=== PATIENT | female | born 1975 | race Caucasian/White ===

== ENCOUNTER 2017-08-20 05:29 | Emergency (ER) | payer OTHER, SELFPAY ==
[2017-08-20 05:31] VITALS: BP 121/90; PULSE 82; RESP 20; TEMP 36.6; O2SAT 98; BMI 38.9
--- NOTE | 2017-08-20 05:48 | EKG12_ITS ---
Test Reason : CP Blood Pressure : / mmHG Vent. Rate : 069 BPM Atrial Rate : 069 BPM P-R Int : 150 ms QRS Dur : 086 ms QT Int : 416 ms P-R-T Axes : -06 -11 008 degrees QTc Int : 445 ms Normal sinus rhythm Inferior infarct , age undetermined Abnormal ECG Confirmed by GERALD REZA, SAYDA ([id number]), health editor RANDOLPH MCKEE ([id number]) on 08/22/2017 10:47:11 AM Referred By: ARIEL Confirmed By:SAYDA DUARTE MD
[2017-08-20 05:54] LABS: Absolute Lymphocyte Count 2.76 X10^3/ul (0.83-4.51); Absolute Neutrophil Count 3.7 X10^3/uL (2.0-7.7); Basophil# 0.03 X10^3/uL; Basophil% 0.4 % (0-1); Eosinophil# 0.25 X10^3/uL; Eosinophils% 3.4 % (0-5); Hematocrit 39.7 % (37-47); Hemoglobin 14.3 g/dl (12.0-15.0); Lymphocyte # 2.76 X10^3/ul (4.0); Mean Corpuscular Hgb 30.6 pg (27.0-32.0); Mean Platelet Vol. 10.2 fl (6.2-12.0); Monocyte# 0.49 X10^3/uL; Monocyte% 6.7 % (0-10); Neutrophil # 3.72 X10^3/uL (2.7-7.7); Neutrophil % 51.2 % (47-70); POSITIVE COUNT NO; POSITIVE DIFFERENTIAL NO; POSITIVE MORPHOLOGY NO; Platelet Count 251 K/mm3 (150-450); RBC Distribution Width CV 12.2 % (11.6-14.6); RBC Distribution Width SD 36.7 fl (35.1-43.9); Red Blood Count 4.67 M/mm3 (4.2-5.4); White Blood Count 7.3 K/mm3 (4.4-11.0)
[2017-08-20] MEDS: 0.9% Normal Saline 1,000 ML 1000 ML IV (05:59)
[2017-08-20] MEDS: MethylPREDNISolone 125 MG/2 ML Vial IV (05:59)
[2017-08-20] MEDS: Ketorolac 15 MG/ML Vial IV (05:59)
[2017-08-20] MEDS: Midazolam 2 MG/2 ML Syringe IV (06:00)
[2017-08-20 06:03] LABS: Anion Gap 9 (5-15); BUN 21 mg/dL (7-18); BUN/Creat Ratio 22.9 RATIO (10-20); Calcium,Total 8.4 mg/dL (8.5-10.1); Chloride 104 mmol/L (98-107); Creatinine, Serum 0.92 mg/dL (0.55-1.02); EST Glomerular Filtration Rate 71 mL/min (>60); Est Glom Filt Rate - Afr Amer 86 mL/min (>60); Estimated Creatinine Clearance 73.81 ml/min; Glucose 100 mg/dL (70-110); Potassium 3.8 mmol/L (3.5-5.1); Sodium Level 138 mmol/L (136-145)
--- NOTE | 2017-08-20 06:53 | ED.VISSUMM ---
- ER Visit Summary Date of Service: 08/20/17 Chief Complaint: [] Esophageal spasm History of Present Illness: The patient is a 41 F [] complaining of esophageal spasm. She reports she has had these symptoms before in the past. She reports slight oral airway swelling and random distribution of hives all over her body. Reports a medical history of fibromyalgia and rheumatoid arthritis. Physical Examination: [] Afebrile, vital signs stable. HEENT shows no significant oral airway edema. Moist mucous membranes. Slight swelling of the lips. Cardiovascular exam is regular rate and rhythm. Lungs are clear to auscultation. Abdomen is soft and nontender. No significant lower extremity pitting edema. Test Results: [] CBC and BMP are within normal limits. Emergency Department Course and Treatment: [] Patient given intravenous fluids, Toradol, Solu-Medrol, Phenergan, Versed. On serial examination she had complete resolution of symptoms. She was requesting discharge. Treatment Plan: [] Follow-up with PCP. Disposition: [] Discharge, stable. Impression: [] Esophageal spasm, unknown etiology This note was generated with [employer] dictation software. It may contain incorrect words, spelling, and punctuation that were not noted in review of the chart prior to signing ED Disposition - Plan for ED Patient: Chief Complaint: Edema Referrals: Sharlene Jurado DO [Primary Care Provider] -
--- NOTE | 2017-08-20 06:56 | ED.DCSUM_ITS ---
- ER Visit Summary Date of Service: 08/20/17 Chief Complaint: [] Esophageal spasm History of Present Illness: The patient is a 41 F [] complaining of esophageal spasm. She reports she has had these symptoms before in the past. She reports slight oral airway swelling and random distribution of hives all over her body. Reports a medical history of fibromyalgia and rheumatoid arthritis. Physical Examination: [] Afebrile, vital signs stable. HEENT shows no significant oral airway edema. Moist mucous membranes. Slight swelling of the lips. Cardiovascular exam is regular rate and rhythm. Lungs are clear to auscultation. Abdomen is soft and nontender. No significant lower extremity pitting edema. Test Results: [] CBC and BMP are within normal limits. Emergency Department Course and Treatment: [] Patient given intravenous fluids, Toradol, Solu-Medrol, Phenergan, Versed. On serial examination she had complete resolution of symptoms. She was requesting discharge. Treatment Plan: [] Follow-up with PCP. Disposition: [] Discharge, stable. Impression: [] Esophageal spasm, unknown etiology This note was generated with [employer] dictation software. It may contain incorrect words, spelling, and punctuation that were not noted in review of the chart prior to signing ED Disposition - Plan for ED Patient: Chief Complaint: Edema Referrals: Sharlene Jurado DO [Primary Care Provider] -
--- NOTE | 2017-08-20 06:56 | ED.DEP ---
ED Disposition - Plan for ED Patient: Disposition: Home or Assisted Living Chief Complaint: Edema Instructions: ED Spasm Esophageal Referrals: Sharlene Jurado DO [Primary Care Provider] -
[2017-08-20 07:00] VITALS: BP 110/77; PULSE 55; RESP 19; O2SAT 97
== END 2017-08-20 07:05 | disposition home or self-care (01) ==
PROVIDERS: Emergency Provider Emergency Medicine; Family Provider Family Medicine; PCP Family Medicine
DX: K22.4 Dyskinesia of esophagus (principal); M79.7 Fibromyalgia; M06.9 Rheumatoid arthritis, unspecified
CPT/HCPCS: 80048; 85025; 93005; 96361; 96374; 96375; 99283; J7030; A4216

== ENCOUNTER → 2017-08-28 08:32 | Outpatient (CLI) | payer OTHER, SELFPAY ==
--- NOTE | 2017-08-28 08:39 | RAD_ITS ---
STUDY: X-RAY - ESOPHAGUS (BARIUM SWALLOW) WITH FLUOROSCOPY REASON FOR EXAM: Female, 41 years old. Dysphagia for solids. TECHNIQUE: 27 view(s) of the esophagus were obtained following swallowing of barium. FLUOROSCOPY TIME (if supplied): (0:31) minutes/seconds COMPARISON: None. FINDINGS: There is no demonstrated esophageal foreign body. There is no demonstrated stricture or mucosal abnormality. Normal gastroesophageal junction, without a demonstrated hiatal hernia. The patient ingested a 12 mm tablet of barium without difficulty. Normal visualized aortic arch and descending thoracic aorta. Normal visualized pulmonary parenchyma. Normal visualized osseous structures of the thorax. RAD/Esophagus Only IMPRESSION: Normal plain film x-ray examination (barium swallow) of the esophagus. Electronically Signed: Spencer Phoenix MD at 10:43 EST Tel [phone], Service support ,
== END ==
PROVIDERS: Family Provider Family Medicine; PCP Family Medicine; Visit Provider Family Medicine
DX: K44.9 Diaphragmatic hernia without obstruction or gangrene (principal); R11.10 Vomiting, unspecified; R13.10 Dysphagia, unspecified; K21.9 Gastro-esophageal reflux disease without esophagitis
CPT/HCPCS: 74220

== ENCOUNTER → 2018-02-02 13:56 | Outpatient (CLI) | payer OTHER, SELFPAY ==
--- NOTE | 2018-02-02 13:59 | RAD_ITS ---
STUDY: X-RAY - LEFT SHOULDER REASON FOR EXAM: Female, 42 years old. Shoulder pain for 4 months. Unable to raise arm above head. TECHNIQUE: 4 view(s) of the shoulder. COMPARISON: None. FINDINGS: Normal glenohumeral articulation. There is degenerative arthrosis of the acromioclavicular joint without inferior osseous spur formation. Normal acromion. There is no acute fracture, dislocation or destructive osseous pathology. Normal humeral head and visualized proximal humerus. The soft tissue structures are unremarkable. Normal visualized pulmonary apex. RAD/Shoulder min 2 Views IMPRESSION: Mild degenerative changes of the acromioclavicular joint. Electronically Signed: Yong Johnson DO at 23:34 EDT Tel [phone], Service support ,
== END ==
LOC: HPRAD 13:58
PROVIDERS: Family Provider Family Medicine; PCP Family Medicine; Visit Provider Family Medicine
DX: M25.512 Pain in left shoulder (principal)
CPT/HCPCS: 73030

== ENCOUNTER → 2018-08-03 12:34 | Outpatient (CLI) | payer OTHER, SELFPAY ==
--- NOTE | 2018-08-03 12:41 | RAD_ITS ---
STUDY: X-RAY - LEFT TIBIA AND FIBULA REASON FOR EXAM: Pain and bruising, fall 5 days ago. TECHNIQUE: 2 view(s) of the tibia and fibula were obtained. COMPARISON: None. FINDINGS: Normal visualized tibia. Normal visualized fibula. There is soft tissue swelling. RAD/Tibia & Fibula 2 Views IMPRESSION: Soft tissue swelling. No demonstrated fracture. Electronically Signed: Santana Sanders MD at 13:45 EST Tel , Service support ,
== END ==
LOC: HPRAD 12:37
PROVIDERS: Family Provider Family Medicine; PCP Family Medicine; Referring Provider Family Medicine; Visit Provider Family Medicine
DX: M79.662 Pain in left lower leg (principal)
CPT/HCPCS: 73590

== ENCOUNTER → 2018-10-17 09:05 | Outpatient (CLI) | payer OTHER, SELFPAY ==
[2018-10-17 13:23] LABS: AST(SGOT) 12 U/L (15-37); Alanine Aminotransfer ALT/SGPT 19 U/L (13-56); Albumin, Serum 3.6 g/dL (3.2-5.0); Alkaline Phosphatase 57 U/L (45-117); Bilirubin, Direct 0.05 mg/dL (0.00-0.30); Globulin 3.1 g/dL (2.2-4.2); Protein, Total 6.7 g/dL (6.4-8.2)
== END ==
PROVIDERS: Family Provider Family Medicine; PCP Family Medicine; Visit Provider Podiatrist
DX: B35.1 Tinea unguium (principal)
CPT/HCPCS: 80076

== ENCOUNTER → 2018-10-19 10:54 | Outpatient (CLI) | payer OTHER, SELFPAY ==
--- NOTE | 2018-10-19 10:57 | VDLE_ITS ---
Reason For Study: LEG PAIN RIGHT LEFT CFV is compressible, spontaneous, phasic, CFV is compressible, spontaneous, phasic, competent and demonstrates normal competent, and demonstrates normal augmentation. augmentation. GSV is normal. FV is compressible, spontaneous, phasic, competent and demonstrates normal augmentation. POP V is compressible, spontaneous, phasic, competent and demonstrates normal augmentation. T/P Trunk is compressible. PTV is compressible. RT PerV is compressible. Procedure Exam performed in department. A preliminary report was called and/or faxed to Dr. Thomas. Interpretation Summary Deep veins of the right lower extremity are patent and compressible segmentally. There is no evidence of right lower extremity deep vein thrombosis. Valvular competence appears intact within the proximal deep venous system on the right . The right greater saphenous vein appears patent and compressible segmentally. Ordering Physician: Luca Thomas Referring Physician: Luca Thomas Performed By: Lucretia Goel RVT
== END ==
LOC: CVS 10:56
PROVIDERS: Family Provider Family Medicine; PCP Family Medicine; Referring Provider Family Medicine; Visit Provider Family Medicine
DX: M79.661 Pain in right lower leg (principal); M79.89 Other specified soft tissue disorders
CPT/HCPCS: 93971

== ENCOUNTER → 2018-10-30 | Outpatient (CLI) | payer OTHER, SELFPAY ==
--- NOTE | 2018-10-30 12:51 | RAD_ITS ---
STUDY: X-RAY - RIGHT KNEE REASON FOR EXAM: Medial pain, rheumatoid arthritis and fibromyalgia, no specific injury. TECHNIQUE: 4 view(s) of the knee. COMPARISON: None. FINDINGS: Normal visualized distal femur. Normal visualized proximal tibia and fibula. Normal proximal tibiofibular articulation. Normal medial femorotibial compartment. Normal lateral femorotibial compartment. Normal patellofemoral articulation. There is a small joint effusion. RAD/Knee 4 or More Views IMPRESSION: Small joint effusion. Otherwise, unremarkable x-ray examination of the right knee. Electronically Signed: Santana Sanders MD at 14:12 EDT Tel , Service support ,
== END | disposition home or self-care (01) ==
LOC: HPRAD 12:48
PROVIDERS: Family Provider Family Medicine; PCP Family Medicine; Referring Provider Family Medicine; Visit Provider Family Medicine
DX: M25.461 Effusion, right knee (principal); M25.561 Pain in right knee
CPT/HCPCS: 73564

== ENCOUNTER → 2019-02-11 | Outpatient (CLI) | payer OTHER, SELFPAY ==
--- NOTE | 2019-02-11 16:26 | RAD_ITS ---
STUDY: X-RAY - RIGHT WRIST REASON FOR EXAM: Female, 43 years old. Trauma TECHNIQUE: 4 view(s) of the wrist were obtained. COMPARISON: None. FINDINGS: The bones of the wrist are intact and located. Mineralization is normal. Soft tissues are intact. RAD/Wrist min 3 Views IMPRESSION: 1. Unremarkable wrist. Electronically Signed: Misti Patel, at 17:09 EDT Tel , Service support ,
== END | disposition home or self-care (01) ==
LOC: MTRAD 16:25
PROVIDERS: Family Provider Family Medicine; PCP Family Medicine; Referring Provider Family Medicine; Visit Provider Family Medicine
DX: M25.531 Pain in right wrist (principal)
CPT/HCPCS: 73110

== ENCOUNTER → 2019-04-15 16:53 | Outpatient (CLI) | payer OTHER, SELFPAY ==
[2019-04-15 18:21] LABS: Free T3 2.3 pg/mL (2.18-3.98); Iron 51 ug/dL (50-170); T4 Free Direct 0.97 ng/dL (0.76-1.46); Thyroid Stim Hormone (TSH) 1.86 uIU/mL (0.358-3.74)
[2019-04-17 16:07] LABS: Thyroid Peroxidase AB 24 IU/mL (0-34)
[2019-04-18 15:29] LABS: Thyroglobulin Antibody 27.9 IU/mL (0.0-0.9)
== END ==
PROVIDERS: Family Provider Family Medicine; PCP Family Medicine; Visit Provider Family Medicine
DX: R53.83 Other fatigue (principal); E61.1 Iron deficiency; E01.0 Iodine-deficiency related diffuse (endemic) goiter
CPT/HCPCS: 36415; 83540; 84439; 84443; 84481; 86376; 86800

== ENCOUNTER → 2019-04-23 15:49 | Outpatient (CLI) | payer OTHER, SELFPAY ==
[2019-04-23 17:14] LABS: Absolute Lymphocyte Count 2.41 X10^3/uL (0.83-4.51); Absolute Neutrophil Count 3.4 X10^3/uL (2.0-7.7); Basophil# 0.05 X10^3/uL; Basophil% 0.8 % (0-1); Eosinophil# 0.23 X10^3/uL; Eosinophils% 3.5 % (0-5); Hematocrit 41.8 % (37-47); Hemoglobin 13.9 g/dL (12.0-15.0); Lymphocyte # 2.41 X10^3/ul (4.0); Lymphocyte % 36.9 % (19-41); Mean Corp Hgb Conc 33.3 g/dL (32-36); Mean Corpuscular Volume 90.3 fL (81-99); Mean Platelet Vol. 10.7 fl (6.2-12.0); Monocyte# 0.43 X10^3/uL; Monocyte% 6.6 % (0-10); NRBC Flagged by Analyzer 0 % (0-5); Neutrophil # 3.41 X10^3/uL (2.7-7.7); Platelet Count 226 K/mm3 (150-450); RBC Distribution Width CV 12.1 % (11.6-14.6); RBC Distribution Width SD 39.6 fl (35.1-43.9); Red Blood Count 4.63 M/mm3 (4.2-5.4); White Blood Count 6.5 K/mm3 (4.4-11.0)
[2019-04-23 17:24] LABS: ALB/GLOB Ratio 1.1 RATIO (0.9-2.4); AST(SGOT) 10 U/L (15-37); Alanine Aminotransfer ALT/SGPT 21 U/L (13-56); Albumin, Serum 3.7 g/dL (3.2-5.0); Alkaline Phosphatase 55 U/L (45-117); Anion Gap 5 (5-15); BUN 13 mg/dL (7-18); BUN/Creat Ratio 11.3 RATIO (10-20); Calcium,Total 8.2 mg/dL (8.5-10.1); Chloride 107 mmol/L (98-107); Cholesterol 214 mg/dL (200); Creatinine, Serum 1.15 mg/dL (0.55-1.02); EST Glomerular Filtration Rate 54 mL/min (>60); Est Glom Filt Rate - Afr Amer 66 mL/min (>60); Globulin 3.4 g/dL (2.2-4.2); Glucose 86 mg/dL (74-106); High Density Lipoprotein 42 mg/dL; Potassium 3.8 mmol/L (3.5-5.1); Protein, Total 7.1 g/dL (6.4-8.2); Sodium Level 140 mmol/L (136-145); Triglycerides 159 mg/dL; Very Low Density Lipoprotein 32 mg/dL (5-40)
[2019-04-23 17:30] LABS: Vitamin B12 311 pg/mL (211-911); Vitamin D,25 Hydroxy 23.7 ng/mL (29.95-100.01)
[2019-04-23 17:43] LABS: PTHIN 70.4 pg/mL (18.4-80.1)
== END ==
PROVIDERS: Family Provider Family Medicine; PCP Family Medicine; Visit Provider Family Medicine
DX: Z00.00 Encounter for general adult medical examination without abnormal findings (principal); E03.9 Hypothyroidism, unspecified; R53.83 Other fatigue
CPT/HCPCS: 36415; 80053; 80061; 82306; 82607; 83970; 85025

== ENCOUNTER → 2019-06-10 14:11 | Outpatient (CLI) | payer OTHER, SELFPAY | PROVIDERS: Family Provider Family Medicine; PCP Family Medicine; Visit Provider Family Medicine | DX: R31.9 Hematuria, unspecified (principal) | CPT/HCPCS: 87086; 87088 ==

== ENCOUNTER → 2019-06-24 15:25 | Outpatient (CLI) | payer OTHER, SELFPAY ==
[2019-06-24 18:41] LABS: ALB/GLOB Ratio 1.1 RATIO (0.9-2.4); AST(SGOT) 19 U/L (15-37); Alanine Aminotransfer ALT/SGPT 38 U/L (13-56); Albumin, Serum 3.8 g/dL (3.2-5.0); Alkaline Phosphatase 66 U/L (45-117); Anion Gap 5 (5-15); BUN 15 mg/dL (7-18); BUN/Creat Ratio 15.6 RATIO (10-20); Calcium,Total 8.1 mg/dL (8.5-10.1); Chloride 104 mmol/L (98-107); Creatinine, Serum 0.96 mg/dL (0.55-1.02); EST Glomerular Filtration Rate 67 mL/min (>60); Est Glom Filt Rate - Afr Amer 81 mL/min (>60); Free T3 2.5 pg/mL (2.18-3.98); Globulin 3.5 g/dL (2.2-4.2); Glucose 95 mg/dL (74-106); Potassium 4.2 mmol/L (3.5-5.1); Protein, Total 7.3 g/dL (6.4-8.2); Sodium Level 137 mmol/L (136-145); T4 Free Direct 1.01 ng/dL (0.76-1.46); Thyroid Stim Hormone (TSH) 1.93 uIU/mL (0.358-3.74)
[2019-06-25 10:05] LABS: Vitamin D,25 Hydroxy 30.4 ng/mL (29.95-100.01)
== END ==
LOC: BFHLAB 15:26
PROVIDERS: Family Provider Family Medicine; PCP Family Medicine; Visit Provider Family Medicine
DX: E03.9 Hypothyroidism, unspecified (principal); E55.9 Vitamin D deficiency, unspecified; Z51.81 Encounter for therapeutic drug level monitoring
CPT/HCPCS: 36415; 80053; 82306; 84439; 84443; 84481

== ENCOUNTER → 2019-10-08 15:00 | Outpatient (CLI) | payer BC, SELFPAY ==
[2019-10-08 17:18] LABS: Absolute Lymphocyte Count 2.68 X10^3/uL (0.83-4.51); Absolute Neutrophil Count 4.5 X10^3/uL (2.0-7.7); Basophil# 0.05 X10^3/uL; Basophil% 0.6 % (0-1); Eosinophil# 0.14 X10^3/uL; Eosinophils% 1.8 % (0-5); Hematocrit 43.4 % (37-47); Hemoglobin 14.9 g/dL (12.0-15.0); Lymphocyte # 2.68 X10^3/ul (4.0); Lymphocyte % 33.8 % (19-41); Mean Corp Hgb Conc 34.3 g/dL (32-36); Mean Corpuscular Hgb 30.3 pg (27.0-32.0); Mean Corpuscular Volume 88.2 fL (81-99); Mean Platelet Vol. 10.6 fl (6.2-12.0); Monocyte# 0.52 X10^3/uL; Monocyte% 6.6 % (0-10); NRBC Flagged by Analyzer 0 % (0-5); Neutrophil # 4.52 X10^3/uL (2.7-7.7); Neutrophil % 56.9 % (47-70); Platelet Count 252 K/mm3 (150-450); RBC Distribution Width CV 12.3 % (11.6-14.6); RBC Distribution Width SD 39.7 fl (35.1-43.9); Red Blood Count 4.92 M/mm3 (4.2-5.4); White Blood Count 7.9 K/mm3 (4.4-11.0)
[2019-10-08 17:40] LABS: Free T3 2.7 pg/mL (2.18-3.98); T4 Free Direct 1.02 ng/dL (0.76-1.46); Thyroid Stim Hormone (TSH) 2.12 uIU/mL (0.358-3.74)
== END ==
PROVIDERS: PCP Family Medicine; Visit Provider Family Medicine
DX: R53.83 Other fatigue (principal); E03.9 Hypothyroidism, unspecified
CPT/HCPCS: 36415; 84439; 84443; 84481; 85025

== ENCOUNTER → 2020-06-03 15:50 | Outpatient (CLI) | payer BC, SELFPAY ==
[2020-06-03 17:03] LABS: ALB/GLOB Ratio 1.1 RATIO (0.9-2.4); AST(SGOT) 14 U/L (15-37); Alanine Aminotransfer ALT/SGPT 25 U/L (13-56); Alkaline Phosphatase 57 U/L (45-117); Anion Gap 7 (5-15); BUN 15 mg/dL (7-18); BUN/Creat Ratio 14.3 RATIO (10-20); Calcium,Total 8.8 mg/dL (8.5-10.1); Chloride 104 mmol/L (98-107); Creatinine, Serum 1.05 mg/dL (0.55-1.02); EST Glomerular Filtration Rate 60 mL/min (>60); Est Glom Filt Rate - Afr Amer 72 mL/min (>60); Globulin 3.6 g/dL (2.2-4.2); Glucose 91 mg/dL (74-106); Potassium 3.7 mmol/L (3.5-5.1); Protein, Total 7.6 g/dL (6.4-8.2); Sodium Level 139 mmol/L (136-145)
== END ==
PROVIDERS: PCP Family Medicine; Visit Provider Family Medicine
DX: N28.9 Disorder of kidney and ureter, unspecified (principal)
CPT/HCPCS: 36415; 80053

== ENCOUNTER → 2020-06-17 | Outpatient (CLI) | payer BC, SELFPAY | END | disposition home or self-care (01) | LOC: LABSPEC 10:17 | PROVIDERS: PCP Family Medicine; Visit Provider Family Medicine | DX: Z20.828 Contact with and (suspected) exposure to other viral communicable diseases (principal) | CPT/HCPCS: 87635; U0002 ==

== ENCOUNTER → 2020-08-14 08:21 | Outpatient (CLI) | payer BC, SELFPAY ==
[2020-08-14 12:22] LABS: Absolute Lymphocyte Count 1.55 X10^3/uL (0.83-4.51); Absolute Neutrophil Count 3.1 X10^3/uL (2.0-7.7); Basophil# 0.02 X10^3/uL; Basophil% 0.4 % (0-1); Eosinophil# 0.13 X10^3/uL; Eosinophils% 2.5 % (0-5); Hematocrit 43.7 % (37-47); Hemoglobin 14.7 g/dL (12.0-15.0); Lymphocyte # 1.55 X10^3/ul (4.0); Lymphocyte % 29.8 % (19-41); Mean Corp Hgb Conc 33.6 g/dL (32-36); Mean Corpuscular Hgb 29.7 pg (27.0-32.0); Mean Corpuscular Volume 88.3 fL (81-99); Mean Platelet Vol. 10.7 fl (6.2-12.0); Monocyte# 0.37 X10^3/uL; Monocyte% 7.1 % (0-10); NRBC Flagged by Analyzer 0 % (0-5); Neutrophil # 3.12 X10^3/uL (2.7-7.7); Platelet Count 248 K/mm3 (150-450); RBC Distribution Width CV 12.3 % (11.6-14.6); RBC Distribution Width SD 40.1 fl (35.1-43.9); Red Blood Count 4.95 M/mm3 (4.2-5.4); White Blood Count 5.2 K/mm3 (4.4-11.0)
[2020-08-14 12:51] LABS: Vitamin D,25 Hydroxy 20.2 ng/mL
[2020-08-14 13:44] LABS: ALB/GLOB Ratio 1.1 RATIO (0.9-2.4); AST(SGOT) 15 U/L (15-37); Alanine Aminotransfer ALT/SGPT 25 U/L (13-56); Albumin, Serum 3.7 g/dL (3.2-5.0); Alkaline Phosphatase 60 U/L (45-117); Anion Gap 8 (5-15); BUN 18 mg/dL (7-18); BUN/Creat Ratio 17.6 RATIO (10-20); Calcium,Total 8.1 mg/dL (8.5-10.1); Chloride 106 mmol/L (98-107); Cholesterol 238 mg/dL (200); Creatinine, Serum 1.02 mg/dL (0.55-1.02); EST Glomerular Filtration Rate 62 mL/min (>60); Est Glom Filt Rate - Afr Amer 75 mL/min (>60); Free T3 2.7 pg/mL (2.18-3.98); Globulin 3.3 g/dL (2.2-4.2); Glucose 82 mg/dL (74-106); High Density Lipoprotein 48 mg/dL; Potassium 3.8 mmol/L (3.5-5.1); Sodium Level 139 mmol/L (136-145); T4 Free Direct 1.11 ng/dL (0.76-1.46); Thyroid Stim Hormone (TSH) 2.08 uIU/mL (0.358-3.74); Triglycerides 89 mg/dL; Very Low Density Lipoprotein 18 mg/dL (5-40)
[2020-08-17 16:08] LABS: Thyroid Peroxidase AB < 9 IU/mL (0-34)
[2020-08-17 18:53] LABS: Thyroglobulin Antibody 60.1 IU/mL (0.0-0.9)
== END ==
PROVIDERS: PCP Family Medicine; Referring Provider Family Medicine; Visit Provider Family Medicine
DX: Z00.01 Encounter for general adult medical examination with abnormal findings (principal); E78.5 Hyperlipidemia, unspecified; E03.9 Hypothyroidism, unspecified; N18.31 Chronic kidney disease, stage 3a; E55.9 Vitamin D deficiency, unspecified; R53.83 Other fatigue; Z51.81 Encounter for therapeutic drug level monitoring
CPT/HCPCS: 36415; 80053; 80061; 82306; 84439; 84443; 84481; 85025; 86376; 86800

== ENCOUNTER → 2023-09-27 | Outpatient (CLI) | payer OTHER, SELFPAY ==
[2023-09-27 16:57] LABS: Absolute Lymphocyte Count 2.21 X10^3/uL (0.83-4.51); Absolute Neutrophil Count 4.1 X10^3/uL (2.0-7.7); Basophil# 0.05 X10^3/uL; Basophil% 0.7 % (0-1); Eosinophil# 0.11 X10^3/uL; Eosinophils% 1.6 % (0-5); Hematocrit 42.2 % (37-47); Hemoglobin 14.6 g/dL (12.0-15.0); Lymphocyte # 2.21 X10^3/ul (0.83-4.51); Mean Corp Hgb Conc 34.6 g/dL (32-36); Mean Corpuscular Hgb 30.4 pg (27.0-32.0); Mean Corpuscular Volume 87.7 fL (81-99); Monocyte# 0.48 X10^3/uL; Monocyte% 6.9 % (0-10); NRBC Flagged by Analyzer 0 % (0-5); Neutrophil # 4.05 X10^3/uL (2.7-7.7); Neutrophil % 58.7 % (47-70); Platelet Count 240 K/mm3 (150-450); RBC Distribution Width CV 12.3 % (11.6-14.6); RBC Distribution Width SD 39.6 fl (35.1-43.9); Red Blood Count 4.81 M/mm3 (4.2-5.4); White Blood Count 6.9 K/mm3 (4.4-11.0)
[2023-09-27 17:27] LABS: Vitamin B12 356 pg/mL (211-911); Vitamin D,25 Hydroxy 26.9 ng/mL
[2023-09-27 17:28] LABS: Hemoglobin A1c 5.1 % (3.8-5.6)
[2023-09-27 17:35] LABS: ALB/GLOB Ratio 1.1 RATIO (0.9-2.4); AST(SGOT) 12 U/L (15-37); Alanine Aminotransfer ALT/SGPT 21 U/L (13-56); Alkaline Phosphatase 55 U/L (45-117); Anion Gap 3 (5-15); BUN 15 mg/dL (7-18); BUN/Creat Ratio 15.8 RATIO (10-20); Calcium,Total 8.7 mg/dL (8.5-10.1); Chloride 105 mmol/L (98-107); Cholesterol 183 mg/dL (200); Creatinine, Serum 0.95 mg/dL (0.55-1.02); EST Glomerular Filtration Rate 66 mL/min (>60); Est Glom Filt Rate - Afr Amer 80 mL/min (>60); Globulin 3.5 g/dL (2.2-4.2); Glucose 101 mg/dL (74-106); High Density Lipoprotein 56 mg/dL; Protein, Total 7.5 g/dL (6.4-8.2); Sodium Level 137 mmol/L (136-145); Thyroid Stim Hormone (TSH) 1.38 uIU/mL (0.358-3.74); Triglycerides 131 mg/dL; Very Low Density Lipoprotein 26 mg/dL (5-40)
--- OUTSIDE RECORDS SUMMARY | 2023-09-27 20:52 | XMS RPT_ITS | CCD ---
Author Name Unknown Address [address] [place] [address] Organization [facility] Care Team Providers Care Hair Boiler Name Role Phone Clark Del Angeln Shawn Unavailable Unavailable Unavailable Clark Del Angeln Unavailable Nik Frey Unavailable Unavailable Newbill, Mr. Monica Chowdhury Primary Care Unavail able Newbill, Mr. Rodasjulian Chowdhury Attending Unavail able Newbill, Mr. Rodasn Trenton Referring Unavail able Newbill, Mr. Monica Chowdhury Primary Care Unavail able Newbill, Mr. Rodasn Trenton Attending Unavail able Newbill, Mr. Rodasn Trenton Referring Unavail able Newbill, Mr. Rodasjulian Chowdhury Referring Unavail able Newbill, Mr. Monica Chowdhury Primary Care Unavail able Newbill, Mr. Monica Chowdhury Attending Unavail able Newbill, Mr. Rodasn Trenton Referring Unavail able Newbill, Mr. Rodasn Trenton Primary Care Unavail able Newbill, Mr. Rodasjulian Chowdhury Attending Unavail able Newbill, Mr. Rodasjulian Chowdhury Primary Care Unavail able Newbill, Mr. Rodasn Trenton Attending Unavail able Newbill, Mr. Rodasjulian Guillenel Referring Unavail able Newbill, Mr. Rodasn Trenton Primary Care Unavail able Newbill, Mr. Rodasjulian Chowdhury Attending Unavail able Newbill, Mr. Rodasjulian Chowdhury Referring Unavail able Newbill, Mr. Rodasn Trenton Primary Care Unavail able Newbill, Mr. Rodasjulian Chowdhury Attending Unavail able Newbill, Mr. Rodasjulian Chowdhury Referring Unavail able Newbill, Mr. Rodasjulian Chowdhury Primary Care Unavail able Newbill, Mr. Monica Chowdhury Attending Unavail able Newbill, Mr. Monica Chowdhury Referring Unavail able Newbill, Mr. Monica Chowdhury Primary Care Unavail able Newbill, Mr. Monica Chowdhury Attending Unavail able Newbill, Mr. Monica Chowdhury Referring Unavail able Newbill Monica HUANG Primary Care Provider Jan JOURNEYMAN APPRENTICE E[employer]-INDUSTRIAL WELDER, Alicia A Unavailable MONICA DEL ANGEL Primary Care Unavailable ADAN MALDONADO Attending Unavailable NEWBILL, MONICA M Primary Care Unavailable NEWBILL, MONICA Escobar Attending Unavailable NEWBILL, MONICA M Primary Care Unavailable NEWBILL, MONICA M Attending Unavailable NEWBILL, MONICA M Primary Care Unavailable NEWBILL, MONICA M Attending Unavailable NEWBILL, MONICA M Primary Care Unavailable NEWBILL, MONICA M Attending Unavailable NEWBILL, MONICA M Referring Unavailable NEWBILL, MONICA M Primary Care Unavailable NEWBILL, MONICA M Attending Unavailable NEWBILL, MONICA M Primary Care Unavailable Allergies Allergy Classification Reported Allergen(s) Allergy Type Date of Onset Reaction(s) Facility (14 sources) diphenhydrAMINE; Translations: [Benadryl] Drug Allergy Hives/Urticari a, Angioedema [facility] Work Phone: (1 source) HYDROmorphone Drug Allergy Angioedema [facility] (7 sources) diphenhydrAMINE; Translations: [DIPHENHYDRAMINE HCL] Drug Allergy 09-02-19 23 [facility] (7 sources) HYDROmorphone; Translations: [HYDROMORPHONE] Drug Allergy 11-24-19 23 [facility] (7 sources) Salicylic Acid; Translations: [SALICYLATES] Drug Allergy 04-12-20 05 [facility] Work Phone: (7 sources) Iodinated Contrast Media; Translations: [IODINATED CONTRAST MEDIA] Drug Intolerance 10-16-19 10 [facility] Work Phone: Medications Current Medications Medication Drug Class(es) Dates Sig (Normalized) Sig (Original) amoxicillin 875 mg oral tablet (1 source) Penicillin-class Antibacterial Start: 04-20-2023 End: 04-25-2023 take 1 tablet by mouth twice daily amoxicillin (Amoxil) 875 mg tablet Indications: Submandibular lymphadenopathy Take 1 tablet (875 mg) by mouth 2 times a day for 5 days. 10 tablet 0 04/20/2023 04/25/2023 Active atomoxetine 40 mg oral capsule (18 sources) Norepinephrine Reuptake Inhibitor Start: 07-20-2021 take 1 capsule by mouth twice daily atomoxetine (Strattera) 40 mg capsule Take 1 capsule (40 mg) by mouth 2 times a day. 0 07/20/2021 Active Completed/Discontinued Medications Medication Drug Class(es) Dates Sig (Normalized) Sig (Original) azithromycin 250 mg oral tablet (7 sources) Macrolide Antimicrobial Start: 03-07-2023 End: 04-20-2023 azithromycin (Zithromax) 250 mg tablet Indications: COVID-19 Take 1 tablet (250 mg) by mouth once daily. 2 tabs po day 1 1 tab po every day days 2-5 6 tablet 0 03/28/2023 04/20/2023 Discontinued (Therapy completed) Problems Active Problems Problem Classification Problem Date Documented Date Episodic/Chronic Anxiety disorders (20 sources) Mixed anxiety and depressive disorder; Translations: [Anxiety state, unspecified] Onset: 09-02-2022 Resolved: 09-02-2022 09-02-2022 Chronic Chronic obstructive pulmonary disease and bronchiectasis (9 sources) Bronchitis; Translations: [Bronchitis, not specified as acute or chronic] Episodic Disorders usually diagnosed in infancy, childhood, or adolescence (18 sources) Attention deficit hyperactivity disorder, predominantly inattentive type; Translations: [Attention deficit disorder without mention of hyperactivity] Onset: 09-02-2022 09-02-2022 Chronic Esophageal disorders (18 sources) Gastroesophageal reflux disease; Translations: [Esophageal reflux] Onset: 09-02-2022 09-02-2022 Chronic Lymphadenitis (3 sources) Submandibular lymphadenopathy; Translations: [Localized enlarged lymph nodes] Onset: 04-20-2023 04-20-2023 Episodic Other aftercare (1 source) Drug therapy finding; Translations: [Other senior living (current) drug therapy] 11-23-2022 Episodic Other connective tissue disease (12 sources) Spasm; Translations: [Spasm of muscle] Episodic Other connective tissue disease (2 sources) Bursitis of unspecified shoulder; Translations: [Bursitis of unspecified shoulder] Onset: 02-01-2023 Episodic Other nutritional; endocrine; and metabolic disorders (2 sources) Obese class I; Translations: [Obesity, unspecified] 11-23-2022 Chronic Other nutritional; endocrine; and metabolic disorders (2 sources) Obesity, unspecified; Translations: [Obesity, unspecified] Onset: 11-23-2022 Chronic Other upper respiratory infections (15 sources) Laryngitis; Translations: [Acute laryngitis without mention of obstruction] Onset: 03-07-2023 03-07-2023 Episodic Spondylosis; intervertebral disc disorders; other back problems (6 sources) Torticollis; Translations: [Torticollis] Onset: 02-01-2023 02-04-2023 Episodic Unclassified (2 sources) CHEST PAINS 12-16-2021 Past or Other Problems Problem Classification Problem Date Documented Date Episodic/Chronic Administrative/social admission (8 sources) Patient encounter status; Translations: [Counseling on substance use and abuse] Resolved: 05-18-2022 Episodic Allergic reactions (4 sources) Contact dermatitis due to poison roseann; Translations: [Contact dermatitis and other eczema due to plants [except food]] Resolved: 05-18-2022 Episodic Mycoses (20 sources) Candidal intertrigo; Translations: [Candidiasis of skin and nails] Onset: 09-02-2022 Resolved: 09-02-2022 09-02-2022 Episodic Other aftercare (2 sources) Other watermaster (current) drug therapy; Translations: [Other watermaster (current) drug therapy] Onset: 11-23-2022 Episodic Other connective tissue disease (15 sources) Fibromyalgia; Translations: [Myalgia and myositis, unspecified] Onset: 09-02-2022 10-26-2022 Episodic Other connective tissue disease (1 source) History of clinical finding in subject; Translations: [Personal history of other musculoskeletal disorders] Resolved: 04-18-2022 Episodic Other connective tissue disease (3 sources) Fibromyositis; Translations: [Fibromyalgia] Onset: 09-02-2022 10-26-2022 Episodic Other inflammatory condition of skin (18 sources) Psoriasis; Translations: [Other psoriasis] Onset: 09-02-2022 Resolved: 09-02-2022 09-02-2022 Chronic Other lower respiratory disease (14 sources) Nodule of lung; Translations: [Solitary pulmonary nodule] Onset: 09-02-2022 Resolved: 09-02-2022 12-16-2021 Episodic Other lower respiratory disease (1 source) H/O: respiratory disease; Translations: [Personal history of other diseases of respiratory system] Resolved: 04-18-2022 Episodic Other lower respiratory disease (1 source) H/O: bronchitis; Translations: [Personal history of other diseases of respiratory system] Resolved: 04-18-2022 Episodic Pleurisy; pneumothorax; pulmonary collapse (10 sources) Pleurisy; Translations: [Pleurisy without mention of effusion or current tuberculosis] Resolved: 05-18-2022 12-16-2021 Episodic Residual codes; unclassified (18 sources) Insomnia; Translations: [Insomnia, unspecified] Onset: 09-02-2022 09-02-2022 Episodic Unclassified (4 sources) Onset: 12-28-2022 Resolved: 03-07-2023 12-28-2022 Results Test Name Value Interpretation Reference Range Facil ity Vital Signs Date Time Vital Sign Value Performing Clinician Facility 04-20-2023 16:39-0400 Body height 167.6 cm Monica Newbill PA-C Work Phone: [facility] 04-20-2023 16:39-0400 Body mass index (BMI) [Ratio] 35.36 kg/m2 Monica Newbill PA-C Work Phone: [facility] 04-20-2023 16:39-0400 Body temperature 98.91 [degF] Monica Newbill PA-C Work Phone: [facility] 04-20-2023 16:39-0400 Body weight 99.38 kg Monica Newbill PA-C Work Phone: [facility] 04-20-2023 16:39-0400 Diastolic blood pressure 86 mm[Hg] Monica Newbill PA-C Work Phone: [facility] 04-20-2023 16:39-0400 Heart rate 68 /min Monica Newbill PA-C Work Phone: [facility] 04-20-2023 16:39-0400 Systolic blood pressure 132 mm[Hg] Monica Newbill PA-C Work Phone: [facility] 03-07-2023 [id number]:11040 Body height 167.6 cm Monica Newbill PA-C Work Phone: [facility] 03-07-2023 10:11-0400 Body mass index (BMI) [Ratio] 34.78 kg/m2 Monica Newbill PA-C Work Phone: 6(400)[phone] [address] 03-07-2023 10:11-040 Body temperature 97.5 [degF] Monica Newbill PA-C Work Phone: 2(104)[phone] [address] 03-07-2023 10:11-0400 Body weight 97.75 kg Monica Newbill PA-C Work Phone: 5(066)[phone] [address] 03-07-2023 10:11-0400 Diastolic blood pressure 84 mm[Hg] Monica Newbill PA-C Work Phone: 1(037)965-396514 [place] [address] 03-07-2023 10:11-0400 Heart rate 79 /min Monica Newbill PA-C Work Phone: 3(060)559-417214 [place] [address] 03-07-2023 10:11-0400 SaO2% (BldA) [Mass fraction] 99 % Monica Newbill PA-C Work Phone: 8(378)[phone] [place] [address] 03-07-2023 10:11-0400 Systolic blood pressure 136 mm[Hg] Monica Newbill PA-C Work Phone: [facility] 02-04-2023 13:28-040 Body height 167.6 cm Monica Newbill PA-C Work Phone: 0(934)[phone] [address] 02-04-2023 13:28-0400 Body mass index (BMI) [Ratio] 35.38 kg/m2 Monica Newbill PA-C Work Phone: [facility] 02-04-2023 13:28-0400 Body temperature 97.7 [degF] Monica Newbill PA-C Work Phone: [facility] 02-04-2023 13:28-0400 Body weight 99.43 kg Monica Newbill PA-C Work Phone: [facility] 02-04-2023 13:28-0400 Diastolic blood pressure 87 mm[Hg] Monica Newbill PA-C Work Phone: [facility] 02-04-2023 13:28-0400 Heart rate 75 /min Monica Newbill PA-C Work Phone: [facility] 02-04-2023 13:28-0400 Systolic blood pressure 133 mm[Hg] Monica Newbill PA-C Work Phone: [facility] 12-28-2022 08:38-0400 Body height 167.6 cm Monica Newbill PA-C Work Phone: [facility] 12-28-2022 08:38-0400 Body mass index (BMI) [Ratio] 34.02 kg/m2 Monica Newbill PA-C Work Phone: [facility] 12-28-2022 08:38-0400 Body weight 95.62 kg Monica Newbill PA-C Work Phone: [facility] 12-28-2022 08:38-0400 Diastolic blood pressure 76 mm[Hg] Monica Newbill PA-C Work Phone: [facility] 12-28-2022 08:38-0400 Heart rate 82 /min Monica Newbill PA-C Work Phone: [facility] 12-28-2022 08:38-0400 Systolic blood pressure 124 mm[Hg] Monica Newbill PA-C Work Phone: [facility] 11-23-2022 08:31-0400 Body height 167.6 cm Monica Newbill PA-C Work Phone: [facility] 11-23-2022 08:31-0400 Body mass index (BMI) [Ratio] 33.57 kg/m2 Monica Newbill PA-C Work Phone: [facility] 11-23-2022 08:31-0400 Body weight 94.35 kg Monica Newbill PA-C Work Phone: [facility] 11-23-2022 08:31-0400 Diastolic blood pressure 70 mm[Hg] Monica Newbill PA-C Work Phone: [facility] 11-23-2022 08:31-0400 Heart rate 73 /min Monica Newbill PA-C Work Phone: [facility] 11-23-2022 08:31-0400 SaO2% (BldA) [Mass fraction] 99 % Monica Newbill PA-C Work Phone: [facility] 11-23-2022 08:31-0400 Systolic blood pressure 112 mm[Hg] Monica Newbill PA-C Work Phone: [facility] 05-18-2022 09:31-0400 Body height 167.64 cm Monica Escobar Newbill Work Phone: [facility] Work Phone: 05-18-2022 09:31-0400 Body mass index (BMI) [Ratio] 30.86 kg/m2 Monica Shawn Newbill Work Phone: [facility] Work Phone: 05-18-2022 09:31-0400 Body surface area Derived from formula 1.96 m2 Monica M Newbill Work Phone: [facility] Work Phone: 05-18-2022 09:31-0400 Body weight 86.73 kg Monica M Newbill Work Phone: [facility] Work Phone: 05-18-2022 09:31-0400 Diastolic blood pressure 74 mm[Hg] Monica Del Angel Work Phone: [facility] Work Phone: 05-18-2022 09:31-0400 Heart rate 102 /min Monica Del Angel Work Phone: [facility] Work Phone: 05-18-2022 09:31-0400 Systolic blood pressure 117 mm[Hg] Monica Del Angel Work Phone: [facility] Work Phone: 04-18-2022 10:19-0400 Body height 167.64 cm Monica Del Angel Work Phone: [facility] Work Phone: 04-18-2022 10:19-0400 Body mass index (BMI) [Ratio] 31.78 kg/m2 Monica Del Angel Work Phone: [facility] Work Phone: 04-18-2022 10:19-0400 Body surface area Derived from formula 1.99 m2 Monica Del Angel Work Phone: [facility] Work Phone: 04-18-2022 10:19-0400 Body temperature 98.2 [degF] Monica Del Angel Work Phone: [facility] Work Phone: 04-18-2022 10:19-0400 Body weight 89.31 kg Monica Del Angel Work Phone: [facility] Work Phone: 04-18-2022 10:19-0400 Diastolic blood pressure 84 mm[Hg] Monica Del Angel Work Phone: [facility] Work Phone: 04-18-2022 10:19-0400 Heart rate 100 /min Monica Del Angel Work Phone: [facility] Work Phone: 04-18-2022 10:19-0400 SaO2% (BldA) [Mass fraction] 99 % Monica Del Angel Work Phone: [facility] Work Phone: 04-18-2022 10:19-0400 Systolic blood pressure 137 mm[Hg] Monica Del Angel Work Phone: [facility] Work Phone: 04-04-2022 12:14-0400 Body height 167.64 cm Monica Del Angel Work Phone: [facility] Work Phone: 04-04-2022 12:14-0400 Body mass index (BMI) [Ratio] 31.1 kg/m2 Monica Del Angel Work Phone: [facility] Work Phone: 04-04-2022 12:14-0400 Body surface area Derived from formula 1.97 m2 Monica Del Angel Work Phone: [facility] Work Phone: 04-04-2022 12:14-0400 Body temperature 98 [degF] Monica Del Angel Work Phone: [facility] Work Phone: 04-04-2022 12:14-0400 Body weight 87.41 kg Monica Del Angel Work Phone: [facility] Work Phone: 04-04-2022 12:14-0400 Diastolic blood pressure 95 mm[Hg] Monica Shawn Newstaceyl Work Phone: [facility] Work Phone: 04-04-2022 12:14-0400 Heart rate 84 /min Monica Ruizl Work Phone: [facility] Work Phone: 04-04-2022 12:14-0400 SaO2% (BldA) [Mass fraction] 99 % Monica Ruizl Work Phone: [facility] Work Phone: 04-04-2022 12:14-0400 Systolic blood pressure 152 mm[Hg] Monica Ruizl Work Phone: [facility] Work Phone: 01-26-2022 16:31-0400 Body height 167.64 cm Monica Ruizl Work Phone: [facility] Work Phone: 01-26-2022 16:31-0400 Body mass index (BMI) [Ratio] 32.59 kg/m2 Monica Ruizl Work Phone: [facility] Work Phone: 01-26-2022 16:31-0400 Body surface area Derived from formula 2.01 m2 Monica Del Angel Work Phone: [facility] Work Phone: 01-26-2022 16:31-0400 Body weight 91.58 kg Monica Ruizl Work Phone: [facility] Work Phone: 01-26-2022 16:31-0400 Diastolic blood pressure 74 mm[Hg] Monica Escobar Newbill Work Phone: [facility] Work Phone: 01-26-2022 16:31-0400 Heart rate 79 /min Monica Shawn Ruizl Work Phone: [facility] Work Phone: 01-26-2022 16:31-0400 Systolic blood pressure 116 mm[Hg] Moniac Shawn Ruizl Work Phone: [facility] Work Phone: 12-22-2021 15:39-0400 Body height 167.64 cm Monica Ruizl Work Phone: [facility] Work Phone: 12-22-2021 15:39-0400 Body mass index (BMI) [Ratio] 32.94 kg/m2 Monica Ruizl Work Phone: [facility] Work Phone: 12-22-2021 15:39-0400 Body surface area Derived from formula 2.02 m2 Monica Del Angel Work Phone: [facility] Work Phone: 12-22-2021 15:39-0400 Body temperature 98.4 [degF] Monica Del Angel Work Phone: [facility] Work Phone: 12-22-2021 15:39-0400 Body weight 92.58 kg Monica Ruizl Work Phone: [facility] Work Phone: 12-22-2021 15:39-0400 Diastolic blood pressure 75 mm[Hg] Monica Shawn Newstaceyl Work Phone: [facility] Work Phone: 12-22-2021 15:39-0400 Heart rate 69 /min Moniac Shawn Newbill Work Phone: [facility] Work Phone: 12-22-2021 15:39-0400 SaO2% (BldA) [Mass fraction] 98 % Monica Shawn Newbill Work Phone: [facility] Work Phone: 12-22-2021 15:39-0400 Systolic blood pressure 122 mm[Hg] Monica M Newbill Work Phone: [facility] Work Phone: 12-16-2021 14:45-0400 Diastolic blood pressure 85 mm[Hg] Monica Newbill Other Phone: [facility] 12-16-2021 14:45-0400 Heart rate 60 /min Monica Newbill Other Phone: [facility] 12-16-2021 14:45-0400 Respiratory rate 18 /min Monica Newbill Other Phone: [facility] 12-16-2021 14:45-0400 SaO2% (BldA) [Mass fraction] 99 % Monica Newbill Other Phone: [facility] 12-16-2021 14:45-0400 Systolic blood pressure 126 mm[Hg] Monica Newbill Other Phone: [facility] 12-16-2021 12:35-0400 Body height 167.6 cm Monica Newbill Other Phone: [facility] 12-16-2021 12:35-0400 Body temperature 97.7 [degF] Monica Newbill Other Phone: [facility] 12-16-2021 12:35-0400 Body weight 90 kg Monica Newbill Other Phone: [facility] 11-15-2021 09:10-0400 Body height 167.64 cm Monica M Newbill Work Phone: [facility] Work Phone: 11-15-2021 09:10-0400 Body mass index (BMI) [Ratio] 32.28 kg/m2 Monica Del Angel Work Phone: [facility] Work Phone: 11-15-2021 09:10-0400 Body surface area Derived from formula 2 m2 Monica Del Angel Work Phone: [facility] Work Phone: 11-15-2021 09:10-0400 Body temperature 98.7 [degF] Monica Del Angel Work Phone: [facility] Work Phone: 11-15-2021 09:10-0400 Body weight 90.72 kg Monica Del Angel Work Phone: [facility] Work Phone: 11-15-2021 09:10-0400 Diastolic blood pressure 71 mm[Hg] Monica Del Angel Work Phone: [facility] Work Phone: 11-15-2021 09:10-0400 Heart rate 68 /min Monica Del Angel Work Phone: [facility] Work Phone: 11-15-2021 09:10-0400 SaO2% (BldA) [Mass fraction] 99 % Monica Del Angel Work Phone: [facility] Work Phone: 11-15-2021 09:10-0400 Systolic blood pressure 124 mm[Hg] Monica Riuzl Work Phone: [facility] Work Phone: 08-17-2021 08:01-0500 Body height 167.64 cm Monica Del Angel Work Phone: [facility] Work Phone: 08-17-2021 08:01-0500 Body mass index (BMI) [Ratio] 34.82 kg/m2 Monica Ruizl Work Phone: [facility] Work Phone: 08-17-2021 08:01-0500 Body surface area Derived from formula 2.07 m2 Monica Del Angel Work Phone: [facility] Work Phone: 08-17-2021 08:01-0500 Body temperature 97.1 [degF] Monica Del Angel Work Phone: [facility] Work Phone: 08-17-2021 08:01-0500 Body weight 97.84 kg Monica Del Angel Work Phone: [facility] Work Phone: 08-17-2021 08:01-0500 Diastolic blood pressure 80 mm[Hg] Monica Del Angel Work Phone: [facility] Work Phone: 08-17-2021 08:01-0500 Heart rate 80 /min Monica Del Angel Work Phone: [facility] Work Phone: 08-17-2021 08:01-0500 Systolic blood pressure 126 mm[Hg] Monica Del Angel Work Phone: [facility] Work Phone: 07-20-2021 13:20-0500 Body height 167.64 cm Monica Del Angel Work Phone: [facility] Work Phone: 07-20-2021 13:20-0500 Body mass index (BMI) [Ratio] 36.14 kg/m2 Monica Del Angel Work Phone: [facility] Work Phone: 07-20-2021 13:20-0500 Body surface area Derived from formula 2.1 m2 Monica Del Angel Work Phone: [facility] Work Phone: 07-20-2021 13:20-0500 Body temperature 98.2 [degF] Monica Del Angel Work Phone: [facility] Work Phone: 07-20-2021 13:20-0500 Body weight 101.56 kg Monica Del Angel Work Phone: [facility] Work Phone: 07-20-2021 13:20-0500 Diastolic blood pressure 71 mm[Hg] Monica Del Angel Work Phone: [facility] Work Phone: 07-20-2021 13:20-0500 Heart rate 70 /min Monica Del Angel Work Phone: [facility] Work Phone: 07-20-2021 13:20-0500 SaO2% (BldA) [Mass fraction] 99 % Monica Del Angel Work Phone: [facility] Work Phone: 07-20-2021 13:20-0500 Systolic blood pressure 122 mm[Hg] Monica Del Angel Work Phone: [facility] Work Phone: Encounters Encounter Date Encounter Type Care Provider Facility Start: 04-20-2023 End: 04-20-2023 ambulatory [facility] Start: 04-20-2023 End: 04-20-2023 Office outpatient visit 25 minutes Monica Del Angel PA-C Work Phone: [facility] Procedures Date Procedure Procedure Detail Performing Clinician Start: 04-18-2023 Lipid 1996 panel - S cris or Plasma Monica Del Angel PA-C Work Phone: Start: 12-28-2022 FOLLOW UP IN FAMILY MEDICINE MONICA DEL ANGEL Start: 12-16-2021 End: 12-16-2021 EKG impression Nik Pittman Frey Extraction of wisdom tooth S anh Del Angel Work Phone: Partial hysterectomy Monica Del Angel Work Phone: Repair of bladder Monica pressley Work Phone: Repair of umbilical hernia S anh Del Angel Work Phone: Plan of Treatment Date Care Activity Detail Author Start: 04-18-2028 Lipid panel Lipid Panel [facility] Start: 12-28-2023 Zoster Vaccines (1 o f 2) Zoster Vaccines (1 of 2) [facility] Start: 10-19-2023 End: 10-19-2023 Patient encounter procedure 10/19/2023 4:30 PM EDT Office Visit [facility] [address] [place] [address] Monica Del Angel PA-C [address] [facility] [place] [address] [facility] [place] Start: 03-29-2023 End: 03-29-2023 Patient encounter procedure 03/29/2023 8:10 AM EDT Office Visit [facility] [address] [place] [address] Monica Del Angel PA-C [address] [facility] [place] [address] [facility] Start: 03-24-2023 Influenza vaccination [facility] Start: 02-04-2023 End: 02-05-2024 Basic metabolic 2000 panel - Serum or Plasma Basic Metabolic Panel Lab Routine Healthcare maintenance Expected: 02/04/2023 (Approximate), Expires: 02/05/2024 [facility] Service Area Work Phone: Immunizations Immunization Date Immunization Notes Care Provider Tu bustillo 06-23-2001 diphtheria and tetan us toxoids, adsorbed for pediatric use Monica Del Angel PA-C Work Phone: [facility] Work Phone: Payers Date Payer Category Payer Unknown 2022 Unknown [id number] 1975 Unknown [id number] 2.16. [id number] 1973 Unknown [id number] 2.16 [id number] 1973 Unknown [id number] 2.16 [id number] 1973 Unknown [id number] 2.16. [id number] 1973 Unknown [id number] 2.16. [id number] 1973 Unknown [id number] 2.16. [id number] 1973 Unknown [id number] 2.16 [id number] 1973 Unknown [id number] 2.16. [id number] 1973 Unknown [id number] 2.16. [id number] 1973 Unknown [id number] 2.16 [id number] 1973 Unknown [id number] 2.16.84 [id number] 1973 Unknown [id number] 2.16.8 [id number] 1973 Unknown [id number] 2.16.8 [id number] 1973 Unknown [id number] 2.16.84 [id number] 1973 Unknown [id number] 2.16.84 [id number] 1973 Unknown [id number] 2.16.84 [id number] Unknown [id number] Social History Date Type Detail Facility Start: 11-23-2022 End: 03-07-2023 Patient ingests cola containing caffeine Patient ingests cola containing caffeine [facility] Work Phone: Tobacco smoking consumption unknown [facility] Start: 11-23-2022 End: 12-28-2022 Tobacco smoking status NHIS Ex-smoker [facility] Work Phone: History of tobacco use Current smoker [facility] Work Phone: History of tobacco use Cigarette Smoker [facility] Work Phone: Start: 11-23-2022 End: 04-20-2023 Alcohol intake Current drinker of alcohol (finding) [facility] Work Phone: Start: 11-23-2022 End: 03-07-2023 Tobacco use panel [facility] Work Phone: Start: 11-23-2022 Alcohol Comment rarely [facility] Work Phone: Start: 1975 Sex Assigned At Not on file [facility] Work Phone: Start: 11-13-2022 End: 04-20-2023 Exposure to SARS-CoV-2 (event) Not sure [facility] Start: 12-28-2022 Tobacco use and exposure Smokeless tobacco non-user [facility] Work Phone: Clinical Notes 11-10-2021 to 04-20-2023 Monica Escobar REINA Del Angel - 04/20/2023 4:30 PM EDEdi Del Angel PA-C - 03/07/2023 10:10 AM EDTSanh Del Angel PA-C - 02/04/2023 1:30 PM EDEdi Del Angel PA-C - 12/28/2022 8:30 AM EDT Note Date & Type Note Facility 04-20-2023 History of Present illness Narrative Subjective Patient ID: Shmuel Rios is a 47 y.o. female who presents for Sore Throat (Patient having swollen glands with the right more increased than the left x 2 weeks./). HPI Patient presents for evaluation of submandibular and anterior cervical lymphadenopathy. Patient reports 1 to 2 weeks of this. Patient did recently have her infection by COVID infection over the past 6 weeks. Patient reports persistent weakness and malaise secondary to the COVID infection. No chest pain or shortness of breath Patient also complains of persistent left cervical radiculopathy. Patient is scheduled to see a chiropractor but is requesting some help with managing the pain. Review of Systems Constitutional: See HPI ENT: See HPI Respiratory: See HPI Musculoskeletal: See HPI Neurologic: Alert and oriented X4, No numbness, No tingling. All other systems are negative Objective BP 132/86 Pulse 68 Temp 37.2 C (98.9 F) (Temporal) Ht 1.676 m (5' 6 ) Wt 99.4 kg (219 lb 1.6 oz) BMI 35.36 kg/m Physical Exam General: Alert and oriented, No acute distress. Eye: Pupils are equal, round and reactive to light, Normal conjunctiva. HENT: Normocephalic, generalized submandibular and anterior cervical lymph node tenderness extending in the preauricular nodes; none are palpably enlarged Neck: Supple: Left cervical paravertebral tenderness extending into the traps and shoulder Respiratory: Respirations are non-labored Musculoskeletal: Normal ROM and strength Integumentary: Warm, Dry, Intact, No pallor, No rash. Neurologic: Alert, Oriented, Normal sensory, Cranial Nerves II-XII are grossly intact Psychiatric: Cooperative, Appropriate mood & affect. Assessment/Plan Submandibular lymphadenopathy: Amoxicillin and low-dose prednisone. Patient advised that this may go on for some time as normal sequela secondary to COVID or any viral infection Cervical radiculopathy: Wrote for topical formulation from [employer]dermal therapeutics. Follow-up as scheduled or as needed Problem List Items Addressed This Visit None Visit Diagnoses Submandibular lymphadenopathy - Primary Relevant Medications amoxicillin (Amoxil) 875 mg tablet predniSONE (Deltasone) 10 mg tablet Cervical radiculopathy Final diagnoses: [R59.0] Submandibular lymphadenopathy [M54.12] Cervical radiculopathy documented in this encounter [facility] Work Phone: 03-07-2023 History of Present illness Narrative Subjective Patient ID: Shmuel Rios is a 47 y.o. female who presents for Cough (Cough, right ear discomfort, tickle in throat, light headed and confusion x 3 days.). HPI Presents for evaluation of URI. Symptoms including cough, congestion, body aches, malaise, and headache have been present for several days and refractory to OTC meds. No fever, chills, nausea, vomiting, abdominal pain, CP, or SOB. No exacerbating factors. Review of Systems Constitutional: See HPI ENT: See HPI Respiratory: See HPI Gastrointestinal: See HPI Neurologic: Alert and oriented X4, No numbness, No tingling. All other systems are negative Objective BP 136/84 Pulse 79 Temp 36.4 C (97.5 F) (Temporal) Ht 1.676 m (5' 6 ) Wt 97.8 kg (215 lb 8 oz) SpO2 99% BMI 34.78 kg/m Physical Exam General: Alert and oriented, No acute distress. Eye: Pupils are equal, round and reactive to light, Extraocular movements are intact, Normal conjunctiva. HENT: Normocephalic, Normal hearing, Oral mucosa is moist, No pharyngeal erythema, No sinus tenderness. Neck: Supple, Non-tender, No lymphadenopathy. Loss of voice noted. Respiratory: Lungs are clear to auscultation, Respirations are non-labored, Breath sounds are equal Cardiovascular: Normal rate, Regular rhythm. Gastrointestinal: Non-distended. Musculoskeletal: Normal range of motion, Normal strength, No tenderness, No swelling, No deformity, Normal gait. Integumentary: Warm, Dry, Intact, No pallor, No rash. Neurologic: Alert, Oriented, Normal sensory, Normal motor function, No focal deficits, Cranial Nerves II-XII are grossly intact Psychiatric: Cooperative, Appropriate mood & affect. Assessment/Plan Upper respiratory infection with laryngitis: Z-Rios, medium prednisone, and Bromfed. Possibility that this is COVID was reviewed with the patient. Patient was not interested in obtaining a COVID swab. Recommend rest and supportive care with isolation otherwise. Problem List Items Addressed This Visit None Visit Diagnoses Upper respiratory tract infection, unspecified type - Primary Relevant Medications azithromycin (Zithromax) 250 mg tablet predniSONE (Deltasone) 10 mg tablet yfogtqxobexrhxd-nswukivtt-ZY (Bromfed DM) 2-30-10 mg/5 mL syrup Laryngitis Relevant Medications azithromycin (Zithromax) 250 mg tablet predniSONE (Deltasone) 10 mg tablet bzokpmkrqtiqiaz-xstbnisfv-TR (Bromfed DM) 2-30-10 mg/5 mL syrup Final diagnoses: [J06.9] Upper respiratory tract infection, unspecified type [J04.0] Laryngitis documented in this encounter [facility] Work Phone: 02-04-2023 History of Present illness Narrative Subjective Patient ID: Shmuel Rios is a 47 y.o. female who presents for Shoulder Pain (Left shoulder and bicep discomfort that is radiating down the arm./Seen at Urgent care and ER put on a sling and sent home with Voltaren, Toradol and Diclofenac Sodium Topical gel./Patient states has been having symptoms x 2 weeks, no known injury. ). HPI Patient presents in ER follow-up for torticollis. Patient reports 2 weeks of fairly severe left cervical paravertebral tenderness with radiation down the left arm. Patient was treated in the ER with Valium and NSAIDs with some relief. Patient reports persistent pain after being prescribed both Toradol and Voltaren. Patient was taking both of these simultaneously as directed. No reported precipitating event prior to onset. No alleviating factors. Review of Systems Constitutional: See HPI Musculoskeletal: See HPI Neurologic: See HPI All other systems are negative Objective BP 133/87 Pulse 75 Temp 36.5 C (97.7 F) (Temporal) Ht 1.676 m (5' 6 ) Wt 99.4 kg (219 lb 3.2 oz) BMI 35.38 kg/m Physical Exam General: Alert and oriented, No acute distress. Eye: Pupils are equal, round and reactive to light, Normal conjunctiva. HENT: Normocephalic, Neck: Supple Respiratory: Respirations are non-labored Musculoskeletal: Left cervical paravertebral muscle tenderness to palpation; tenderness extends to the shoulder; reduced range of motion on all axes inhibited by pain Neurologic: Alert, Oriented, Normal sensory, Cranial Nerves II-XII are grossly intact Psychiatric: Cooperative, Appropriate mood & affect. Assessment/Plan Torticollis: Tramadol. Continue Flexeril as previously prescribed. Patient counseled to contact office should symptoms persist beyond 2 to 4 weeks. Healthcare maintenance: Screening labs ordered. Further recommendations pending results. Follow-up as scheduled or as needed Problem List Items Addressed This Visit None Visit Diagnoses Torticollis, acute - Primary Relevant Medications traMADol (Ultram) 50 mg tablet Healthcare maintenance Relevant Orders Basic Metabolic Panel CBC Hepatic Function Panel Lipid Panel TSH with reflex to Free T4 if abnormal Final diagnoses: [M43.6] Torticollis, acute [Z00.00] Healthcare maintenance documented in this encounter [facility] Work Phone: 12-28-2022 History of Present illness Narrative Subjective Patient ID: Shmuel Rios is a 47 y.o. female who presents for Follow-up (FU 1 mos, states having migraines feels d/t Adipex and has only taken once daily./Repeat CT chest due this month.). HPI Patient presents in follow-up of starting Adipex therapy. Patient did not tolerate the medication reporting headaches and dry mouth. Patient also has not worked out or alter diet. Patient is requesting any other alternatives to help with weight loss. Review of Systems Constitutional: See HPI Neurologic: Alert and oriented X4, No numbness, No tingling. All other systems are negative Objective BP 124/76 (BP Location: Left arm, Patient Position: Sitting, BP Cuff Size: Adult) Pulse 82 Ht 1.676 m (5' 6 ) Wt 95.6 kg (210 lb 12.8 oz) BMI 34.02 kg/m Physical Exam General: Alert and oriented, No acute distress. Eye: Pupils are equal, round and reactive to light, Normal conjunctiva. HENT: Normocephalic, Neck: Supple Respiratory: Respirations are non-labored Musculoskeletal: Normal ROM and strength Integumentary: Warm, Dry, Intact, No pallor, No rash. Neurologic: Alert, Oriented, Normal sensory, Cranial Nerves II-XII are grossly intact Psychiatric: Cooperative, Appropriate mood & affect. Assessment/Plan Obesity: Other options reviewed. Start Wegovy at upward titrating dose. Follow-up in 3 months. Problem List Items Addressed This Visit None Visit Diagnoses Obesity (BMI 30.0-34.9) - Primary Relevant Medications semaglutide, weight loss, (WEGOVY) 0.25 mg/0.5 mL pen injector Final diagnoses: [E66.9] Obesity (BMI 30.0-34.9) documented in this encounter [facility] Work Phone: 11-23-2022 History of Present illness Narrative Est pt here for 6 mth fuv. Weight gain possibly due to depression. Would like to discuss weight loss medications and sleep aid medication. Subjective Patient ID: Shmuel Rios is a 46 y.o. female who presents for Follow-up. HPI She presents in 6-month follow-up and treatment of anxiety and depression, ADHD, and migraines with Strattera, Wellbutrin, Prozac, Ativan as needed, and Imitrex. Patient is requesting pharmacological intervention for weight loss. Patient has taken Adipex in the past and did well. Patient admits that over the past year there has been a lack of exercise and poor diet due to deaths in the family and family members with poor health requiring her attention. Patient is dedicated to changing the poor eating habits and engaging in exercise if the Adipex is initiated. Review of Systems Constitutional: See HPI Psychiatric: See HPI Neurologic: Alert and oriented X4, No numbness, No tingling. All other systems are negative Objective BP 112/70 Pulse 73 Ht 1.676 m (5' 6 ) Wt 94.3 kg (208 lb) SpO2 99% BMI 33.57 kg/m Physical Exam General: Alert and oriented, No acute distress. Eye: Pupils are equal, round and reactive to light, Normal conjunctiva. HENT: Normocephalic, Neck: Supple Respiratory: Respirations are non-labored Musculoskeletal: Normal ROM and strength Integumentary: Warm, Dry, Intact, No pallor, No rash. Neurologic: Alert, Oriented, Normal sensory, Cranial Nerves II-XII are grossly intact Psychiatric: Cooperative, Appropriate mood & affect. Assessment/Plan Anxiety and depression: Continue Wellbutrin, Prozac, and Ativan as needed ADHD: Continue Strattera Obesity: Start phentermine possible/probable side effects reviewed. CSA and urine drug screen obtained. Follow-up 1 month Problem List Items Addressed This Visit None Visit Diagnoses Obesity (BMI 30.0-34.9) - Primary Relevant Medications phentermine 15 mg capsule Final diagnoses: [E66.9] Obesity (BMI 30.0-34.9) documented in this encounter [facility] Work Phone: 11-10-2021 History of Present illness Narrative Patient presents for evaluation of hoarse voice and cough. Symptoms have been present for 1 week and have slightly improved over the past 24 to 48 hours. Patient took negative COVID test at home. The patient was seen at an urgent care, diagnosed with allergy reaction, and prescribed Medrol and Flonase approximately 5 days ago and this has improved symptoms. No fever, chills, nausea, diarrhea, or other constitutional signs and symptoms. There was some chest congestion with a sensation of shortness of breath yesterday which has since resolved. [facility] Work Phone: documented in this encounter [facility] Work Phone: Evaluation note* Diagnosis Obesity (BMI 30.0-34.9)- Primary documented in this encounter [facility] Work Phone: Evaluation note* Diagnosis Torticollis, acute- Primary Healthcare maintenance documented in this encounter [facility] Work Phone: Evaluation note* Diagnosis Upper respiratory tract infection, unspecified type- Primary Laryngitis Acute laryngitis, without mention of obstruction documented in this encounter [facility] Work Phone: Evaluation note* Diagnosis Submandibular lymphadenopathy- Primary Cervical radiculopathy Brachial neuritis or radiculitis nos documented in this encounter [facility] Work Phone: History of Present illness Narrative* Patient presents to [facility] care. * Patient has history of anxiety and depression which is currently untreated. Patient also has history of ADHD that was previously treated with Adderall however, patient has not taken this in 2 months.Patient states that while treated, Adderall did not make much of a difference in the symptoms which include difficulty focusing, easy distraction, difficulty completing tasks. * Patient was treated for anxiety and depression in the past however, did not tolerate the treatmentsand never revisited the issue. Patient lost a son approximately 11 years ago and did not seek counseling or treatment and has muscle through the trauma. Patient admits to emotional instability, inte rmittent profound sadness however overall somnolence and daily sadness is not reported. * Patient is treated for insomnia and takes as needed Ambien for this. Patient states this is not needed very often and has quite a few left from prior prescription. * Patient has complicated surgical history. Patient reportedly suffered from a cystocele secondary tothe of a child. Patient underwent bladder sling. Reportedly, this eventually failed and the sling eroded through the vaginal wall, uterus, and bladder. And when the bladder began to sag again, it was noted during the repair that the bladder had compressed the bowel and the patient underwent resection and reanastomosis. Patient reports subsequent chronic bowel issues requiring stool softeners and laxatives to have regular bowel movements. Patient has undergone colonoscopies and surveillance of this. * Patient does have [employer] on board and has followed with them for Paps, pelvics, and mammograms. * Patient also reports intermittent issues with skin rashes in the inframammary folds and inguinal creases. No prior treatment other than vley-zyc-qwlsaet creams that have been ineffective. Patient states that the rashes are pruritic and slightly tender, erythematous, with slightly raised edges. * Patient also has a history of psoriasis that is treated on an as-needed basis with prednisone. Onlyreal area of outbreak is on the right elbow. Currently, the psoriasis is active. * Patient also reports history of tinea pedis with onychomycosis. Patient has not tried any treatments for the onychomycosis but states the nails are flaky and discolored and have been for many years. [facility] Work Phone: History of Present illness Narrative* She presents for follow-up of ADHD and anxiety and depression. * Patient reports good results with the atomoxetine. Patient states that flight of ideas and train ofthought have improved significantly. Patient is able to concentrate on the task and without distraction. Recently however, patient reports some breakthrough symptoms similar as to prior to the treatment. Patient questioning possible increase. * Patient did not tolerate sertraline. Patient states that after taking the Zoloft, there was fairly profound fatigue associated with treatment and patient did not try again. Patient admits however, that the initiation of both Zoloft and Strattera may have exacerbated this. Patient did not try the med icine again afterwards. * Patient also complains of poor appetite. Patient has a protein shake for breakfast and nothing for lunch and a normal dinner. Patient states that about noon, there is feeling of increased heart rate and almost dizziness. Patient is questioning whether poor diet is the cause of this. [facility] Work Phone: History of Present illness Narrative* Patient presents in ER follow-up of right lower lobe lung nodule. Incidental finding of a 1.4 cm right lower lobe pulmonary nodule was noted on x-ray and work-up for pleurisy and bronchitis. Patient states that pleurisy has nearly resolved but does wax and wane and is currently bothering her. * Patient is also interested in quitting smoking. Patient reportedly quit cold turkey during the mostrecent bronchitis/pleurisy course. Patient is interested in continuing this. [facility] Work Phone: History of Present illness Narrative* Patient presents in ER follow-up of right lower lobe lung nodule. Incidental finding of a 1.4 cm right lower lobe pulmonary nodule was noted on x-ray and work-up for pleurisy and bronchitis. Patient states that pleurisy has nearly resolved but does wax and wane and is currently bothering her. * Patient is also interested in quitting smoking. Patient reportedly quit cold turkey during the mostrecent bronchitis/pleurisy course. Patient is interested in continuing this. [facility] Work Phone: History of Present illness NarrativePatient presents 1 month after starting Wellbutrin in effort to stop smoking and manage ADD. Duringthe interim, the patient's mother in sertraline was increased and a short course of diazepam was written. Patient is doing well with all medications and has no complaints.[facility] Work Phone: History of Present illness NarrativePresents for evalution of rash. 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 Area has grown in size and now includes face, neck, left periorbital region, left upper extremity. No dyspnea, cough, angioedema, or other constitutional S/S. Pt has had contact dermatitis in the past. No other complaints[facility] Work Phone: History of Present illness NarrativePresents for evalution of rash. 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 Area has grown in size and now includes face, neck, left periorbital region, left upper extremity. No dyspnea, cough, angioedema, or other constitutional S/S. Pt has had contact dermatitis in the past. No other complaints[facility] Work Phone: History of Present illness Narrative* Patient presents in follow-up of anxiety depression treatment with Prozac. Patient reports good results with 10 mg daily. * Patient wishes to discuss insomnia. Patient is having difficulties falling asleep and staying asleep. Patient reports racing thoughts that are prohibiting sleep. [facility] Work Phone: Reason for referral (narrative)* Consultation (Routine) - Authorized Specialty Diagnoses / Procedures Referred By Contac t Referred To Contact Primary Care Procedures Follow Up In Primary Care Monica Del Angel PA-C [address] [place] [address] [place] [address] Referral ID Status Reason Start Date Expiration Date V isits Requested Visits Authorized [id number] Authorized 11/23/2022 05/22/2023 1 1 [facility] Work Phone: reason for referral (narrative)* Consultation (Routine) - Authorized Specialty Diagnoses / Procedures Referred By Juliannac t Referred To Contact Primary Care Procedures Follow Up In Primary Care Monica Del Angel PA-C [address] [place] [address] Physician [place] [phone] Referral ID Status Reason Start Date Expiration Date V isits Requested Visits Authorized [id number] Authorized 12/28/2022 06/26/2023 1 1 [facility] Work Phone: reason for referral (narrative)* Consultation (Routine) - Authorized Specialty Diagnoses / Procedures Referred By Contac t Referred To Contact Primary Care Procedures Follow Up In Primary Care - [facility] Monica Del Angel PA-C [address] [place] [address] Physician [place] [phone] Referral ID Status Reason Start Date Expiration Date V isits Requested Visits Authorized [id number] Authorized 04/20/2023 10/17/2023 1 1 [facility] Work Phone: Summary Purpose Family History No Family History Records FoundUnknown Family Member Name Dates Details Family history of neuropathy : Mother(V17.2, Z82.0) Status:Active Unknown Family Member Name Dates Details Family history of neuropathy : Mother(V17.2, Z82.0) Status:Active Unknown Family Member Name Dates Details Family history of neuropathy : Mother(V17.2, Z82.0) Status:Active Unknown Family Member Name Dates Details Family history of neuropathy : Mother(V17.2, Z82.0) Status:Active Unknown Family Member Name Dates Details Family history of neuropathy : Mother(V17.2, Z82.0) Status:Active Unknown Family Member Name Dates Details Family history of neuropathy : Mother(V17.2, Z82.0) Status:Active Unknown Family Member Name Dates Details Family history of neuropathy : Mother(V17.2, Z82.0) Status:Active Unknown Family Member Name Dates Details Family history of neuropathy : Mother(V17.2, Z82.0) Status:Active Unknown Family Member Name Dates Details Family history of neuropathy : Mother(V17.2, Z82.0) Status:Active Unknown Family Member Name Dates Details Family history of neuropathy : Mother(V17.2, Z82.0) Status:Active Unknown Family Member Name Dates Details Family history of neuropathy : Mother(V17.2, Z82.0) Status:Active Unknown Family Member Name Dates Details Family history of neuropathy : Mother(V17.2, Z82.0) Status:Active Unknown Family Member Name Dates Details Family history of neuropathy : Mother(V17.2, Z82.0) Status:Active Advance Directives No Advanced Directives Records FoundNo Advanced Directives Records FoundNo Advanced Directives Records FoundNo Advanced Directives Records FoundNo Advanced Directives Records FoundNo Advanced Directives Records FoundNo Advanced Directives Records Found Chief Complaint * Patient here today to get established as a new patient and for medication refills. Patient states it has been a year since last seen by PCP. * Patient having bilateral great toenail flaking and thickness x 2 years. * Patient dx with psoriasis and having right panty line skin irritation with dryness x 2 months. Patient has been using OTC itching powder. * Patient will need refills for prescribed medications. * Patient is seen by [facility] in [place] and last PAP 2019, Mammo 2019 , stool blood test 2012 and colonoscopy 2012. * Patient here today for her follow up 1 month visit. Patient states she has not taken the Sertralineas it causes her to sleep all day. Patient states it makes her feel worse than better. * Patient states feels Atomoxetine is working but during the day feels light headed intermittently. * Patient here today to be seen for cough, sore throat, sinus drainage, chest congestion with SOB x 7days. * Patient took OTC Covid test Monday with negative results. Patient seen at an urgent care and dx with allergies. Patient was prescribed an allergy med, Medrol Dose Rios and Flonase. * Patient states she is feeling much better today but wanted to be checked by PCP. * Patient her today for follow up ER from 12-16-2021. Pateint was seen for right sided chest discomfort. Patient was prescribed Lidocaine patch and Naproxen. Patient states she was dx with a lung nodule. * Patient continues with mid back discomfort with deep breaths. Patient states was not having any discomfort yesterday. * Patient her today for follow up ER from 12-16-2021. Pateint was seen for right sided chest discomfort. Patient was prescribed Lidocaine patch and Naproxen. Patient states she was dx with a lung nodule. * Patient continues with mid back discomfort with deep breaths. Patient states was not having any discomfort yesterday. Follow-up of bupropion therapy* Patient here today to be seen for skin irritation with itching involving face, left eye with swelling, bilat arms and legs x yesterday. 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 Patient tried taking OTC allergy medication without success. * Patient is allergic to Benadryl. * Solu-Medrol 125 mg/2 mL given right IM gluteus without incident by BLAIRE Mcginnis. Patient offered no complaints and tolerated well. * [facility]: [id number] * EXP 08/2022 * LOT [id number] * Patient here today to be seen for skin irritation with itching involving face, left eye with swelling, bilat arms and legs x yesterday. 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 Patient tried taking OTC allergy medication without success. * Patient is allergic to Benadryl. * Solu-Medrol 125 mg/2 mL given right IM gluteus without incident by BLAIRE Mcginnis. Patient offered no complaints and tolerated well. * [facility]: [id number] * EXP 08/2022 * LOT [id number] * Patient here today for followup 1 month appt. Patient offers no complaints and tolerating medications well. * Patient states it has been a stressful month with a lot of dental work and has had to take Lorazepam. Additional Source Comments INFORMATION SOURCE (unrecogn ized section and content) DATE CREATED AUTHOR AUTHOR'S ORGANIZ ATION 05/19/2022 [facility] DATE CREATED AUTHOR AUTHOR'S ORGANIZ ATION 05/19/2022 [employer] DATE CREATED AUTHOR AUTHOR'S ORGANIZ ATION 02/07/2023 [facility] DATE CREATED AUTHOR AUTHOR'S ORGANIZ ATION 04/26/2023 [facility] DATE CREATED AUTHOR AUTHOR'S ORGANIZ ATION 04/26/2023 [facility] DATE CREATED AUTHOR AUTHOR'S ORGANIZ ATION 04/27/2023 [facility] <item> Privacy Markings (unrecogniz ed section and content) Section Author: Pari Floyd PROHIBITION ON REDISCLOSURE OF CONFIDENTIAL INFORMATION This notice accompanies a disclosure of information concerning a client made to you with the consent of such client. Reason for Visit (unrecogniz ed section and content) Reason Comments Follow-up FU 1 mos, states hav ing migraines feels d/t Adipex and has only taken once daily.Repeat CT chest due this month. Specialty Diagnoses / Procedures Referred By Shirley t Referred To Contact Primary Care Procedures Follow Up In Primary Care Monica Del Angel PA-C [address] [facility] [place] [address] Referral ID Status Reason Start Date Expiration Date V isits Requested Visits Authorized [id number] Authorized 11/23/2022 05/22/2023 1 1 Reason Comments Shoulder Pain Left shoulder and bi cep discomfort that is radiating down the arm.Seen at Urgent care and ER put on a sling and sent home with Voltaren, Toradol and Diclofenac Sodium Topical gel.Patient states has been having symptoms x 2 weeks, no known injury. Reason Comments Cough Cough, right ear dis comfort, tickle in throat, light headed and confusion x 3 days. Reason Comments Sore Throat Patient having swoll en glands with the right more increased than the left x 2 weeks. Care Teams (unrecognized sec tion and content) Hair Boiler Relationship Specialty Start Date End Date Monica Del Angel PA-C [address] [facility] [place] [address] PCP - General 07/20/21 Alicia Montoya APRN-CNP [address] [facility] [place] [id number] PCP - [place] [employer] PCP 08/24/22 Hair Boiler Relationship Specialty Start Date End Date Monica eDl Angel PA-C [address] [facility] [place] [address] PCP - General 07/20/21 Alicia Montoya APRN-CNP [address] [facility] [place] [address] PCP - [place] [employer] PCP 08/24/22 Hair Boiler Relationship Specialty Start Date End Date Monica Del Angel PA-C [address] [facility] [place] [address] PCP - General 07/20/21 Alicia Mnotoya APRN-CNP [address] [facility] [place] [address] PCP - [place] [employer] PCP 08/24/22 Hair Boiler Relationship Specialty Start Date End Date Monica Del Angel PA-C [address] [facility] [place] [address] PCP - General 07/20/21 Alicia Montoya APRN-CNP [address] [facility] [place] [address] PCP - [place] [employer] PCP 08/24/22 FOR RECORDS PERTAINING TO PATIENTS WHO ARE OR HAVE BEEN ENROLLED IN A CHEMICAL DEPENDENCY/SUBSTANCEABUSE PROGRAM, SOME INFORMATION MAY BE OMITTED. This clinical summary was aggregated from multiple sources. Caution should be exercised in using it in the provision of clinical care. This summary normalizes information from multiple sources, and as a consequence, information in this document may materially change the coding, format and clinical context of patient data. In addition, data may be omitted in some cases. CLINICAL DECISIONS SHOULD BE BASED ON THE PRIMARY CLINICAL RECORDS. [facility]. provides no warranty or guarantee of the accuracy or completeness of information in this document.
== END | disposition home or self-care (01) ==
PROVIDERS: Referring Provider Nurse Practitioner Family; Visit Provider Nurse Practitioner Family
DX: F41.9 Anxiety disorder, unspecified (principal); F32.9 Major depressive disorder, single episode, unspecified
CPT/HCPCS: 36415; 80053; 80061; 82306; 82607; 83036; 84443; 85025

== ENCOUNTER 2023-10-03 07:14 | Day surgery (SDC) | payer OTHER, SELFPAY ==
--- OUTSIDE RECORDS SUMMARY | 2023-10-03 07:21 | XMS RPT_ITS | CCD ---
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 (7 sources) diphenhydrAMINE; Translations: [DIPHENHYDRAMINE HCL] Drug Allergy 09-02-19 23 [facility] (7 sources) HYDROmorphone; Translations: [HYDROMORPHONE] Drug Allergy 11-24-19 23 [facility] (7 sources) Salicylic Acid; Translations: [SALICYLATES] Drug Allergy 04-12-20 05 [facility] Work Phone: (7 sources) Iodinated Contrast Media; Translations: [IODINATED CONTRAST MEDIA] Drug Intolerance 10-16-19 10 [facility] Work Phone: Medications Current Medications Medication Drug [...] (1 source) Drug therapy finding; Translations: [Other keno terminal operator (current) drug therapy] 11-23-2022 Episodic Other connective [...] 09-02-2022 Episodic Other aftercare (2 sources) Other keno terminal operator (current) drug therapy; Translations: [Other keno terminal operator (current) drug therapy] Onset: 11-23-2022 Episodic Other [...] 167.6 cm Monica Newbill PA-C Work Phone: [facility] 04-20-2023 16:39-0400 Body mass index (BMI) [Ratio] 35.36 kg/m2 Monica Newbill PA-C Work Phone: [facility] 04-20-2023 16:39-0400 Body temperature 98.91 [degF] Monica Newbill PA-C Work Phone: [facility] 04-20-2023 16:39-0400 Body weight 99.38 kg Monica Newbill PA-C Work Phone: [facility] 04-20-2023 16:39-0400 Diastolic blood pressure 86 mm[Hg] Monica Newbill PA-C Work Phone: [facility] 04-20-2023 16:39-0400 Heart rate 68 /min Monica Newbill PA-C Work Phone: [facility] 04-20-2023 16:39-0400 Systolic blood pressure 132 mm[Hg] Monica Newbill PA-C Work Phone: [facility] 03-07-2023 10:11040 Body height 167.6 cm Monica Newbill PA-C Work Phone: [facility] 03-07-2023 10:11-0400 Body mass index (BMI) [Ratio] 34.78 kg/m2 Monica Newbill PA-C Work Phone: 4(280)[phone] [address] 03-07-2023 10:11-040 Body temperature 97.5 [degF] Monica Newbill PA-C Work Phone: [phone](095)[phone] [address] 03-07-2023 10:11-0400 Body weight 97.75 kg Monica Newbill PA-C Work Phone: 1(061)[phone] [address] 03-07-2023 10:11-0400 Diastolic blood pressure 84 mm[Hg] Monica Newbill PA-C Work Phone: 1(356)598-179313 [place] [address] 03-07-2023 10:11-0400 Heart rate 79 /min Monica Newbill PA-C Work Phone: 4(819)[phone] [place] [address] 03-07-2023 10:11-0400 SaO2% (BldA) [Mass fraction] 99 % Monica Newbill PA-C Work Phone: 2(902)[phone] [place] [address] 03-07-2023 10:11-0400 Systolic blood pressure 136 mm[Hg] Monica Newbill PA-C Work Phone: [facility] 02-04-2023 13:28-040 Body height 167.6 cm Monica Newbill PA-C Work Phone: 4(497)[phone] [address] 02-04-2023 13:28-0400 Body mass index (BMI) [Ratio] 35.38 kg/m2 Monica Newbill PA-C Work Phone: [facility] 02-04-2023 13:28-0400 Body temperature 97.7 [degF] Monica Newbill PA-C Work Phone: [facility] 02-04-2023 13:28-0400 Body weight 99.43 kg Monica Newbill PA-C Work Phone: [facility] 02-04-2023 13:28-0400 Diastolic blood pressure 87 mm[Hg] Monica Newbill PA-C Work Phone: [facility] 02-04-2023 13:28-0400 Heart rate 75 /min Monica Newbill PA-C Work Phone: [facility] 02-04-2023 13:28-0400 Systolic blood pressure 133 mm[Hg] Monica Newbill PA-C Work Phone: [facility] 12-28-2022 08:38-0400 Body height 167.6 cm Monica Newbill PA-C Work Phone: [facility] 12-28-2022 08:38-0400 Body mass index (BMI) [Ratio] 34.02 kg/m2 Monica Newbill PA-C Work Phone: [facility] 12-28-2022 08:38-0400 Body weight 95.62 kg Monica Newbill PA-C Work Phone: [facility] 12-28-2022 08:38-0400 Diastolic blood pressure 76 mm[Hg] Monica Newbill PA-C Work Phone: [facility] 12-28-2022 08:38-0400 Heart rate 82 /min Monica Newbill PA-C Work Phone: [facility] 12-28-2022 08:38-0400 Systolic blood pressure 124 mm[Hg] Monica Newbill PA-C Work Phone: [facility] 11-23-2022 08:31-0400 Body height 167.6 cm Monica Newbill PA-C Work Phone: [facility] 11-23-2022 08:31-0400 Body mass index (BMI) [Ratio] 33.57 kg/m2 Monica Newbill PA-C Work Phone: [facility] 11-23-2022 08:31-0400 Body weight 94.35 kg Monica Newbill PA-C Work Phone: [facility] 11-23-2022 08:31-0400 Diastolic blood pressure 70 mm[Hg] Monica Newbill PA-C Work Phone: [facility] 11-23-2022 08:31-0400 Heart rate 73 /min Monica Newbill PA-C Work Phone: [facility] 11-23-2022 08:31-0400 SaO2% (BldA) [Mass fraction] 99 % Monica Newbill PA-C Work Phone: [facility] 11-23-2022 08:31-0400 Systolic blood pressure 112 mm[Hg] Monica Newbill PA-C Work Phone: [facility] 05-18-2022 09:31-0400 Body height 167.64 cm Monica Escobar Newbill Work Phone: [facility] Work Phone: 05-18-2022 09:31-0400 Body mass index (BMI) [Ratio] 30.86 kg/m2 Monica Shawn Newbill Work Phone: [facility] Work Phone: 05-18-2022 09:31-0400 Body surface area Derived from formula 1.96 m2 Monica M Newbill Work Phone: [facility] Work Phone: 05-18-2022 09:31-0400 Body weight 86.73 kg Monica M Newbill Work Phone: [facility] Work Phone: 05-18-2022 09:31-0400 Diastolic blood pressure 74 mm[Hg] Monica Del Angel Work Phone: [facility] Work Phone: 05-18-2022 09:31-0400 Heart rate 102 /min Monica Del Angel Work Phone: [facility] Work Phone: 05-18-2022 09:31-0400 Systolic blood pressure 117 mm[Hg] Monica Del Angel Work Phone: [facility] Work Phone: 04-18-2022 10:19-0400 Body height 167.64 cm Monica Del Angel Work Phone: [facility] Work Phone: 04-18-2022 10:19-0400 Body mass index (BMI) [Ratio] 31.78 kg/m2 Monica Del Angel Work Phone: [facility] Work Phone: 04-18-2022 10:19-0400 Body surface area Derived from formula 1.99 m2 Monica Del Angel Work Phone: [facility] Work Phone: 04-18-2022 10:19-0400 Body temperature 98.2 [degF] Monica Del Angel Work Phone: [facility] Work Phone: 04-18-2022 10:19-0400 Body weight 89.31 kg Monica Del Angel Work Phone: [facility] Work Phone: 04-18-2022 10:19-0400 Diastolic blood pressure 84 mm[Hg] Monica Del Angel Work Phone: [facility] Work Phone: 04-18-2022 10:19-0400 Heart rate 100 /min Monica Del Angel Work Phone: [facility] Work Phone: 04-18-2022 10:19-0400 SaO2% (BldA) [Mass fraction] 99 % Monica Del Angel Work Phone: [facility] Work Phone: 04-18-2022 10:19-0400 Systolic blood pressure 137 mm[Hg] Monica Del Angel Work Phone: [facility] Work Phone: 04-04-2022 12:14-0400 Body height 167.64 cm Monica Del Angel Work Phone: [facility] Work Phone: 04-04-2022 12:14-0400 Body mass index (BMI) [Ratio] 31.1 kg/m2 Monica Del Angel Work Phone: [facility] Work Phone: 04-04-2022 12:14-0400 Body surface area Derived from formula 1.97 m2 Monica Del Angel Work Phone: [facility] Work Phone: 04-04-2022 12:14-0400 Body temperature 98 [degF] Monica Del Angel Work Phone: [facility] Work Phone: 04-04-2022 12:14-0400 Body weight 87.41 kg Monica Del Angel Work Phone: [facility] Work Phone: 04-04-2022 12:14-0400 Diastolic blood pressure 95 mm[Hg] Monica Shawn Newstaceyl Work Phone: [facility] Work Phone: 04-04-2022 12:14-0400 Heart rate 84 /min Monica Ruizl Work Phone: [facility] Work Phone: 04-04-2022 12:14-0400 SaO2% (BldA) [Mass fraction] 99 % Monica Ruizl Work Phone: [facility] Work Phone: 04-04-2022 12:14-0400 Systolic blood pressure 152 mm[Hg] Monica Ruizl Work Phone: [facility] Work Phone: 01-26-2022 16:31-0400 Body height 167.64 cm Monica Ruizl Work Phone: [facility] Work Phone: 01-26-2022 16:31-0400 Body mass index (BMI) [Ratio] 32.59 kg/m2 Monica Ruizl Work Phone: [facility] Work Phone: 01-26-2022 16:31-0400 Body surface area Derived from formula 2.01 m2 Monica Del Angel Work Phone: [facility] Work Phone: 01-26-2022 16:31-0400 Body weight 91.58 kg Monica Ruizl Work Phone: [facility] Work Phone: 01-26-2022 16:31-0400 Diastolic blood pressure 74 mm[Hg] Monica Escobar Newbill Work Phone: [facility] Work Phone: 01-26-2022 16:31-0400 Heart rate 79 /min Monica Shawn Ruizl Work Phone: [facility] Work Phone: 01-26-2022 16:31-0400 Systolic blood pressure 116 mm[Hg] Monica Shawn Ruizl Work Phone: [facility] Work Phone: 12-22-2021 15:39-0400 Body height 167.64 cm Monica Ruizl Work Phone: [facility] Work Phone: 12-22-2021 15:39-0400 Body mass index (BMI) [Ratio] 32.94 kg/m2 Monica Ruizl Work Phone: [facility] Work Phone: 12-22-2021 15:39-0400 Body surface area Derived from formula 2.02 m2 Monica Del Angel Work Phone: [facility] Work Phone: 12-22-2021 15:39-0400 Body temperature 98.4 [degF] Monica Del Angel Work Phone: [facility] Work Phone: 12-22-2021 15:39-0400 Body weight 92.58 kg Monica Ruizl Work Phone: [facility] Work Phone: 12-22-2021 15:39-0400 Diastolic blood pressure 75 mm[Hg] Monica Shawn Newstaceyl Work Phone: [facility] Work Phone: 12-22-2021 15:39-0400 Heart rate 69 /min Monica Shawn Newbill Work Phone: [facility] Work Phone: 12-22-2021 15:39-0400 SaO2% (BldA) [Mass fraction] 98 % Monica Shawn Newbill Work Phone: [facility] Work Phone: 12-22-2021 15:39-0400 Systolic blood pressure 122 mm[Hg] Monica M Newbill Work Phone: [facility] Work Phone: 12-16-2021 14:45-0400 Diastolic blood pressure 85 mm[Hg] Monica Newbill Other Phone: [facility] 12-16-2021 14:45-0400 Heart rate 60 /min Monica Newbill Other Phone: [facility] 12-16-2021 14:45-0400 Respiratory rate 18 /min Monica Newbill Other Phone: [facility] 12-16-2021 14:45-0400 SaO2% (BldA) [Mass fraction] 99 % Monica Newbill Other Phone: [facility] 12-16-2021 14:45-0400 Systolic blood pressure 126 mm[Hg] Monica Newbill Other Phone: [facility] 12-16-2021 12:35-0400 Body height 167.6 cm Monica Newbill Other Phone: [facility] 12-16-2021 12:35-0400 Body temperature 97.7 [degF] Monica Newbill Other Phone: [facility] 12-16-2021 12:35-0400 Body weight 90 kg Monica Newbill Other Phone: [facility] 11-15-2021 09:10-0400 Body height 167.64 cm Monica M Newbill Work Phone: [facility] Work Phone: 11-15-2021 09:10-0400 Body mass index (BMI) [Ratio] 32.28 kg/m2 Monica Del Angel Work Phone: [facility] Work Phone: 11-15-2021 09:10-0400 Body surface area Derived from formula 2 m2 Monica Del Angel Work Phone: [facility] Work Phone: 11-15-2021 09:10-0400 Body temperature 98.7 [degF] Monica Del Angel Work Phone: [facility] Work Phone: 11-15-2021 09:10-0400 Body weight 90.72 kg Monica Del Angel Work Phone: [facility] Work Phone: 11-15-2021 09:10-0400 Diastolic blood pressure 71 mm[Hg] Monica Del Angel Work Phone: [facility] Work Phone: 11-15-2021 09:10-0400 Heart rate 68 /min Monica Del Angel Work Phone: [facility] Work Phone: 11-15-2021 09:10-0400 SaO2% (BldA) [Mass fraction] 99 % Monica Del Angel Work Phone: [facility] Work Phone: 11-15-2021 09:10-0400 Systolic blood pressure 124 mm[Hg] Monica Ruizl Work Phone: [facility] Work Phone: 08-17-2021 08:01-0500 Body height 167.64 cm Monica Del Angel Work Phone: [facility] Work Phone: 08-17-2021 08:01-0500 Body mass index (BMI) [Ratio] 34.82 kg/m2 Monica Ruizl Work Phone: [facility] Work Phone: 08-17-2021 08:01-0500 Body surface area Derived from formula 2.07 m2 Monica Del Angel Work Phone: [facility] Work Phone: 08-17-2021 08:01-0500 Body temperature 97.1 [degF] Monica Del Angel Work Phone: [facility] Work Phone: 08-17-2021 08:01-0500 Body weight 97.84 kg Monica Del Angel Work Phone: [facility] Work Phone: 08-17-2021 08:01-0500 Diastolic blood pressure 80 mm[Hg] Monica Del Angel Work Phone: [facility] Work Phone: 08-17-2021 08:01-0500 Heart rate 80 /min Monica Del Angel Work Phone: [facility] Work Phone: 08-17-2021 08:01-0500 Systolic blood pressure 126 mm[Hg] Monica Del Angel Work Phone: [facility] Work Phone: 07-20-2021 13:20-0500 Body height 167.64 cm Monica Del Angel Work Phone: [facility] Work Phone: 07-20-2021 13:20-0500 Body mass index (BMI) [Ratio] 36.14 kg/m2 Monica Del Angel Work Phone: [facility] Work Phone: 07-20-2021 13:20-0500 Body surface area Derived from formula 2.1 m2 Monica Del Angel Work Phone: [facility] Work Phone: 07-20-2021 13:20-0500 Body temperature 98.2 [degF] Monica Del Angel Work Phone: [facility] Work Phone: 07-20-2021 13:20-0500 Body weight 101.56 kg Monica Del Angel Work Phone: [facility] Work Phone: 07-20-2021 13:20-0500 Diastolic blood pressure 71 mm[Hg] Monica Del Angel Work Phone: [facility] Work Phone: 07-20-2021 13:20-0500 Heart rate 70 /min Monica Del Angel Work Phone: [facility] Work Phone: 07-20-2021 13:20-0500 SaO2% (BldA) [Mass fraction] 99 % Monica Del Angel Work Phone: [facility] Work Phone: 07-20-2021 13:20-0500 Systolic blood pressure 122 mm[Hg] Monica Del Angel Work Phone: [facility] Work Phone: Encounters Encounter Date Encounter Type Care Provider Facility Start: 04-20-2023 End: 04-20-2023 ambulatory [facility] Ambulatory Start: 04-20-2023 End: 04-20-2023 Office outpatient visit 25 minutes Monica Del Angel PA-C Work Phone: [facility] Procedures Date Procedure Procedure Detail Performing Clinician Start: 04-18-2023 Lipid 1996 panel - S cris or Plasma Monica Del Angel PA-C Work Phone: Start: 12-28-2022 FOLLOW UP IN FAMILY MEDICINE MONICA DEL ANGEL Start: 12-16-2021 End: 12-16-2021 EKG impression Nik Pittman Fery Extraction of wisdom tooth S anh Del Angel Work Phone: Partial hysterectomy Monica Del Angel Work Phone: Repair of bladder Monica pressley Work Phone: Repair of umbilical hernia S anh Del Angel Work Phone: Plan of Treatment Date Care Activity Detail Author Start: 04-18-2028 Lipid panel Lipid Panel [facility] Start: 12-28-2023 Zoster Vaccines (1 o f 2) Zoster Vaccines (1 of 2) [facility] Start: 10-19-2023 End: 10-19-2023 Patient encounter procedure 10/19/2023 4:30 PM EDT Office Visit [facility] [address] [place] [address] Monica Del Angel PA-C [address] [facility] [place] [address] [facility] Start: 03-29-2023 End: 03-29-2023 Patient encounter procedure 03/29/2023 8:10 AM EDT Office Visit [facility] [address] [place] [address] Monica Del Angel PA-C [address] [facility] [address] [facility] Start: 03-24-2023 Influenza vaccination [facility] Start: 02-04-2023 End: 02-05-2024 Basic metabolic 2000 panel - Serum or Plasma Basic Metabolic Panel Lab Routine Healthcare maintenance Expected: 02/04/2023 (Approximate), Expires: 02/05/2024 [facility] Service Area Work Phone: Immunizations Immunization Date Immunization Notes Care Provider Tu bustillo 06-23-2001 diphtheria and tetan us toxoids, adsorbed for pediatric use Monica Del Angel PA-C Work Phone: [facility] Work Phone: Payers Date Payer Category Payer Unknown 2022 Unknown [id number] 1975 Unknown [id number] 2.16. [id number] 1975 Unknown [id number] 2.16 [id number] 1973 Unknown [id number] 2.16 [id number] 1973 Unknown [id number] 2.16. [id number] 1973 Unknown [id number] 2.16. [id number] 1973 Unknown [id number] 2.16. [id number] 1973 Unknown [id number] 2.16 [id number] 1973 Unknown [id number] 2.16. [id number] 1973 Unknown [id number] 2.16. [id number] 1973 Unknown [id number] 2.16 [id number] 1973 Unknown [id number] 2.16.84 [id number] 1973 Unknown [id number] 2.16.8 [id number] 1973 Unknown [id number] 2.16.8 [id number] 1973 Unknown [id number] 2.16.84 [id number] 1973 Unknown [id number] 2.16.84 [id number] 1973 Unknown [id number] 2.16.84 [id number] Unknown [id number] Social History Date Type Detail Facility Start: 11-23-2022 End: 03-07-2023 Patient ingests cola containing caffeine Patient ingests cola containing caffeine [facility] Work Phone: Tobacco smoking consumption unknown [facility] Start: 11-23-2022 End: 12-28-2022 Tobacco smoking status NHIS Ex-smoker [facility] Work Phone: History of tobacco use Current smoker [facility] Work Phone: History of tobacco use Cigarette Smoker [facility] Work Phone: Start: 11-23-2022 End: 04-20-2023 Alcohol intake Current drinker of alcohol (finding) [facility] Work Phone: Start: 11-23-2022 End: 03-07-2023 Tobacco use panel [facility] Work Phone: Start: 11-23-2022 Alcohol Comment rarely [facility] Work Phone: Start: 1975 Sex Assigned At Not on file [facility] Work Phone: Start: 11-13-2022 End: 04-20-2023 Exposure to SARS-CoV-2 (event) Not sure [facility] Start: 12-28-2022 Tobacco use and exposure Smokeless tobacco non-user [facility] Work Phone: Clinical Notes 11-10-2021 to 04-20-2023 [...] [M54.12] Cervical radiculopathy documented in this encounter [facility] Work Phone: 03-07-2023 History of Present illness [...] mg tablet predniSONE (Deltasone) 10 mg tablet qhkfxmjbkaouleq-prjhtirbq-FI (Bromfed DM) 2-30-10 mg/5 mL syrup Laryngitis Relevant Medications azithromycin (Zithromax) 250 mg tablet predniSONE (Deltasone) 10 mg tablet pvyhoohovcnlveq-xmxjqscaw-EQ (Bromfed DM) 2-30-10 mg/5 mL syrup Final diagnoses: [J06.9] Upper respiratory tract infection, unspecified type [J04.0] Laryngitis documented in this encounter [facility] Work Phone: 02-04-2023 History of Present illness [...] [Z00.00] Healthcare maintenance documented in this encounter [facility] Work Phone: 12-28-2022 History of Present illness [...] Obesity (BMI 30.0-34.9) documented in this encounter [facility] Work Phone: 11-23-2022 History of Present illness [...] Obesity (BMI 30.0-34.9) documented in this encounter [facility] Work Phone: 11-10-2021 History of Present illness [...] of breath yesterday which has since resolved. [facility] Work Phone: documented in this encounter [facility] Work Phone: Evaluation note* Diagnosis Obesity (BMI 30.0-34.9)- Primary documented in this encounter [facility] Work Phone: Evaluation note* Diagnosis Torticollis, acute- Primary Healthcare maintenance documented in this encounter [facility] Work Phone: Evaluation note* Diagnosis Upper respiratory tract infection, unspecified type- Primary Laryngitis Acute laryngitis, without mention of obstruction documented in this encounter [facility] Work Phone: Evaluation note* Diagnosis Submandibular lymphadenopathy- Primary Cervical radiculopathy Brachial neuritis or radiculitis nos documented in this encounter [facility] Work Phone: History of Present illness Narrative* Patient presents to [facility] care. * Patient has history of [...] surveillance of this. 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 * Patient also reports intermittent issues with skin rashes in the inframammary folds and inguinal creases. No prior treatment other than pgwk-mrs-fdrispk creams that have been ineffective. Patient states [...] discolored and have been for many years. [facility] Work Phone: History of Present [...] poor diet is the cause of this. [facility] Work Phone: History of Present [...] course. Patient is interested in continuing this. [facility] Work Phone: History of Present [...] course. Patient is interested in continuing this. [facility] Work Phone: History of Present illness NarrativePatient presents 1 month after starting Wellbutrin in effort to stop smoking and manage ADD. Duringthe interim, the patient's mother in sertraline was increased and a short course of diazepam was written. Patient is doing well with all medications and has no complaints.[facility] Work Phone: History of Present illness NarrativePresents for evalution of rash. 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 Area has grown in size and now includes face, neck, left periorbital region, left upper extremity. No dyspnea, cough, angioedema, or other constitutional S/S. Pt has had contact dermatitis in the past. [facility] Work Phone: History of Present illness NarrativePresents for evalution of rash. 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 Area has grown in size and now includes face, neck, left periorbital region, left upper extremity. No dyspnea, cough, angioedema, or other constitutional S/S. Pt has had contact dermatitis in the past. [facility] Work Phone: History of Present illness Narrative* Patient presents in follow-up of anxiety depression treatment with Prozac. Patient reports good results with 10 mg daily. * Patient wishes to discuss insomnia. Patient is having difficulties falling asleep and staying asleep. Patient reports racing thoughts that are prohibiting sleep. [facility] Work Phone: Reason for referral (narrative)* Consultation (Routine) - Authorized Specialty Diagnoses / Procedures Referred By Contac t Referred To Contact Primary Care Procedures Follow Up In Primary Care Monica Del Angel PA-C [address] [place] [address] [place] [address] Referral ID Status Reason Start Date Expiration Date V isits Requested Visits Authorized [id number] Authorized 11/23/2022 05/22/2023 1 1 [facility] Work Phone: reason for referral (narrative)* Consultation (Routine) - Authorized Specialty Diagnoses / Procedures Referred By Juliannac t Referred To Contact Primary Care Procedures Follow Up In Primary Care Monica Del Angel PA-C [address] [place] [address] Physician [place] [phone] Referral ID Status Reason Start Date Expiration Date V isits Requested Visits Authorized [id number] Authorized 12/28/2022 06/26/2023 1 1 [facility] Work Phone: reason for referral (narrative)* Consultation (Routine) - Authorized Specialty Diagnoses / Procedures Referred By Contac t Referred To Contact Primary Care Procedures Follow Up In Primary Care - [facility] Monica Del Angel PA-C [address] [place] [address] Physician [place] [phone] Referral ID Status Reason Start Date Expiration Date V isits Requested Visits Authorized [id number] Authorized 04/20/2023 10/17/2023 1 1 [facility] Work Phone: Summary Purpose Family History No [...] prescribed medications. * Patient is seen by [facility] in [place] and last PAP 2019, Mammo 2019 , [...] offered no complaints and tolerated well. * [facility]: [phone] * EXP 08/2022 * LOT [id number] * Patient here today to be seen [...] offered no complaints and tolerated well. * [facility] [place]: [id number] * EXP 08/2022 * LOT [id number] * Patient here today for followup 1 month appt. Patient offers no complaints and tolerating medications well. * Patient states it has been a stressful month with a lot of dental work and has had to take Lorazepam. Additional Source Comments INFORMATION SOURCE (unrecogn ized section and content) DATE CREATED AUTHOR AUTHOR'S ORGANIZ ATION 05/19/2022 [facility] DATE CREATED AUTHOR AUTHOR'S ORGANIZ ATION 05/19/2022 [employer] DATE CREATED AUTHOR AUTHOR'S ORGANIZ ATION 02/07/2023 [facility] DATE CREATED AUTHOR AUTHOR'S ORGANIZ ATION 04/26/2023 [facility] DATE CREATED AUTHOR AUTHOR'S ORGANIZ ATION 04/26/2023 [facility] DATE CREATED AUTHOR AUTHOR'S ORGANIZ ATION 04/27/2023 [facility] <item> Privacy Markings (unrecogniz ed section [...] Primary Care Monica Del Angel PA-C [address] [facility] [place] [address] Referral ID Status Reason Start Date Expiration Date V isits Requested Visits Authorized [id number] Authorized 11/23/2022 05/22/2023 1 1 Reason Comments [...] Care Teams (unrecognized sec tion and content) Delivery Recruiter Relationship Specialty Start Date End Date Monica Del Angel PA-C [address] [facility] [place] [address] PCP - General 07/20/21 Alicia Montoya APRN-CNP [address] [facility] [place] [phone] PCP - [place] [employer] PCP 08/24/22 Delivery Recruiter Relationship Specialty Start Date End Date Monica Del Angel PA-C [address] [facility] [place] [address] PCP - General 07/20/21 Alicia Montoya APRN-CNP [address] [facility] [place] [address] PCP - [place] [employer] PCP 08/24/22 Delivery Recruiter Relationship Specialty Start Date End Date Monica Del Angel PA-C [address] [facility] [place] [address] PCP - General 07/20/21 Alicia Montoya APRN-CNP [address] [facility] [place] [address] PCP - [place] [employer] PCP 08/24/22 Delivery Recruiter Relationship Specialty Start Date End Date Monica Del Angel PA-C [address] [facility] [place] [address] PCP - General 07/20/21 Alicia Montoya APRN-CNP [address] [facility] [place] [address] PCP - [place] [employer] PCP 08/24/22 FOR [...] BE BASED ON THE PRIMARY CLINICAL RECORDS. [facility] [facility]. provides no warranty or guarantee of the accuracy or completeness of information in this document.
[2023-10-03 07:38] VITALS: BP 107/78; PULSE 68; RESP 16; TEMP 36.6; O2SAT 98; BMI 32.0
[2023-10-03] MEDS: Lactated Ringers 1,000 ML 15 ML IV (07:44)
--- NOTE | 2023-10-03 08:00 | EGD_PTH ---
PATHOLOGY RESULTS PATIENT: SHMUEL MONTOYA I LOC: EN U#:[id number] AGE/SX: 47/F ROOM: RE10/03/[address]: Dr. Ignacio Starr MD : 1975 BED: DIS: 10/03/2023 SPEC #: [id number] RECD: 10/03/23 11:04 STATUS: VU CASSIE #: [id number] ROBERTA: 10/03/23 08:[address]: Ignacio Starr DEPT: SURGICAL PATHOLOGY RECD BY: Nena Gipson ENTERED: 10/03/23 11:05 SP TYPE: EGD BIOPSY OTHR DR: Bibi [facility] Tissues: Esophageal mucous membrane Procedures: Surgery Specimen Level IV HEADER OPERATION: EGD with poss dilation, biopsy PRE-OP DIAGNOSIS: Difficulty swallowing TISSUE SUBMITTED: Mid esophagus biopsy MICROSCOPIC DIAGNOSIS Mid esophagus biopsy; Fragments are benign squamous mucosa. No evidence of inflammation. AM/mr 10/04/23 MICROSCOPIC DESCRIPTION Slides are reviewed. GROSS DESCRIPTION Received in fixative is one container labeled with the patient's name and designated mid esophagus biopsy. The specimen consists of multiple irregular fragments of light jones soft tissue that in aggregate measure 1.0 x 0.3 x 0.1 cm. The specimen is totally submitted in one cassette. / SJ:[email or web address] 10/03/2023 TC:5 CPT: 02746
--- NOTE | 2023-10-03 08:11 | PCM.HP.BLA ---
History and Physical Date of Admission: 10/03/23 Intake Vital Signs 09/19/2412:47 Height 5 ft 6 in Weight: 203 lb BMI 32.8 BP 103/72 Blood Pressure Location Rt brachial Position Sitting Respiration 17 Pulse 84 Pulse Source Monitor Temp 96.4 F L Temp Source Temporal Pulse Oximetry (%) 95 Oxygen Delivery Method room air Intake Visit Reasons: Gerd last scope 20yrs ago Chief Complaint: gerd/difficulty swallowing Is patient in pain?: No Allergies hydrocodone Allergy (Intermediate, Verified 09/19/23 13:49) Swellinghydromorphone [From Dilaudid] Allergy (Intermediate, Verified 09/19/23 13:49) Swellingdiphenhydramine HCl [From Benadryl] Allergy (Verified 08/20/17 05:30) Angioedema Medications Ibuprofen [Motrin] 800 mg PO TID PRN PRN Pain 08/20/17 [History Confirmed 08/20/17] atomoxetine 40 mg capsule 40 mg PO BID 09/19/23 [History Confirmed 09/19/23] ezetimibe 10 mg tablet 10 mg PO DAILY 09/19/23 [History Confirmed 09/19/23] fluoxetine 10 mg capsule 10 mg PO DAILY 09/19/23 [History Confirmed 09/19/23] pantoprazole 40 mg tablet,delayed release 40 mg PO DAILY 09/19/23 [History Confirmed 09/19/23] sucralfate 1 gram tablet (Carafate) 1 g PO QACHS 09/19/23 [History Confirmed 09/19/23] PFSH Medical History (Updated 09/19/23 @ 15:[address] Ignacio Starr MD) History of TIA (transient ischemic attack) Rheumatoid arthritis Surgical History (Updated 09/19/23 @ 13:45 by Mabel Webster) H/O: hysterectomy Family History (Updated 09/19/23 @ 13:46 by Mabel Webster) Father Cancer lung Mother Heart disease Myocardial infarctionGrandmother Breast cancer Social History (Updated 09/19/23 @ 13:47 by Mabel Webster) Smoking Status: Former smoker alcohol intake: never substance use type: marijuana and other details: cbd HPI HPI HPI: Patient is a 47-year-old female here with dysphagia. She reports she feels pills and food getting stuck and sometimes she regurgitates undigested food. She also has reflux. She says has been going on for few years. She does report that she is taking a PPI and has been on 1 for very long time. ROS General General: Yes weight change and fatigue; No appetite, colon cancer, breast cancer or weakness HEENT HEENT: Yes difficulty swallowing and swollen glands; No eye injury, eye surgery or hoarseness Endo Endocrine: No thyroid disease, diabetes mellitus, thyroid cancer, Hair loss, heat intolerance or cold intolerance Skin Skin: No rash or changing moles Musc Musculoskeletal: Yes back problems, arthritis and rheumatoid arthritis; No gout or joint pain Cardio Cardiovascular: No murmur, pacemaker, heart disease, atrial fibrillation, high blood pressure, heart attack, heart stent, palpitations, shortness of breat with exertion or chest pain Psych Psychiatric: Yes depression and anxiety; No hearing voices Resp Respiratory: No shortness of breath, No sleep apnea, Yes cough, No COPD, No asthma, No emphysema and No wheezing Gastro Gastrointestinal: Yes abdominal pain, Yes nausea or vomiting, Yes diarrhea, Yes constipation, No blood in stool, Yes acid reflux, Yes hemorrhoids, No ulcers, No gallbladder problem and No black,tarry stools [place] Hematologic: No blood thinners, No blood disorders, No bleeding, No anemia and No blood clots Neuro Neurologic: No system reviewed and no additional complaints, except as documented, No as per HPI, No abnormal gait, No abnormal hearing, No abnormal movements, No abnormal speech, No behavioral changes, No burning sensations, No confusion, No convulsions, No disequilibrium, No dizziness, No localized weakness, No frequent falls, No headache(s), No lack of coordination, No loss of vision, No memory loss, Yes numbness, No other visual disturbances, No radicular pain, No restless legs, No sensory deficit, No syncope, Yes tingling, No tremor(s), No weakness and No other Exam Const General: cooperative Orientation: alert and oriented x3 HENMT Head: normal to inspection Neck Neck: normal visual inspection and full ROM Chest Chest palpation & inspection: normal inspection of the chest Resp Effort & Inspection: normal respiratory effort Auscultation: clear to auscultation bilaterally Cardio Rate: regular rate Rhythm: regular rhythm GI Inspection: non-distended Palpation: soft and nontender Skin General: no rashes or lesions noted Neuro General: patient alert and patient oriented x3 Extrem General: full ROM Psych Appearance: grossly normal Mental Status: mental status grossly normal Assessment and Plan Assessment and Plan (1) Difficulty swallowing: Status: Acute Qualifiers: Dysphagia type: esophageal phase Qualified Code(s): R13.19 - Other dysphagia Plan: Patient reports she is feeling that food is getting stuck and she is having trouble swallowing. She is luxated GERD and has been on a PPI for several years. I recommended starting with an EGD with possible dilation. I discussed this with her in detail. I discussed increased risk of perforation or bleeding with dilation. I also discussed the possibility of Zenker's diverticulum or esophageal spasm and if the EGD is normal I may order an upper GI and manometry. I explained endoscopy in detail to the patient. I explained the risks including but not limited to stroke or heart attack with anesthesia, perforation of the GI tract, bleeding, infection. I explained that any of these could necessitate further emergency surgery. The patient understands and all questions were answered sufficiently. The patient wishes to proceed with procedure. Ignacio Starr MD Pager: [facility] [address] [place] [address], [address] [place] [address] Office: I have examined the patient and the H&P has been reviewed. There are no clinical changes since date of exam.
--- NOTE | 2023-10-03 08:39 | OP.EGD_ITS ---
Patient Name: Becky Burkett Procedure Date: 10/03/2023 8:24 AM Date of : 1975 Age: 47 Procedure: Upper GI endoscopy Indications: Heartburn, Esophageal reflux Providers: Ignacio Starr MD Referring MD: Ignacio Starr MD Medicines: Monitored Anesthesia Care Patient Profile: This is a 47 year old female. Refer to note in patient chart for documentation of history and physical. Complications: No immediate complications. Estimated blood loss: Minimal. Procedure: Pre-Anesthesia Assessment: - Prior to the procedure, a History and Physical was performed, and patient medications and allergies were reviewed. The patient's tolerance of previous anesthesia was also reviewed. The risks and benefits of the procedure and the sedation options and risks were discussed with the patient. All questions were answered, and informed consent was obtained. Prior Anticoagulants: The patient has taken no anticoagulant or antiplatelet agents. After reviewing the risks and benefits, the patient was deemed in satisfactory condition to undergo the procedure. After obtaining informed consent, the endoscope was passed under direct vision. Throughout the procedure, the patient's blood pressure, pulse, and oxygen saturations were monitored continuously. The gastroscope was introduced through the mouth, and advanced to the fourth part of duodenum. The upper GI endoscopy was accomplished without difficulty. The patient tolerated the procedure well. Scope In: 8:29:28 AM Scope Out: 8:33:56 AM Total Procedure Duration Time 0 hours 4 minutes 28 seconds Findings: Non-severe esophagitis with no bleeding was found at the gastroesophageal junction. Mucosal changes including ringed esophagus and longitudinal furrows were found in the middle third of the esophagus. Biopsies were taken with a cold forceps for histology. The stomach was normal. The examined duodenum was normal. Impression: - Non-severe reflux esophagitis with no bleeding. - Esophageal mucosal changes suggestive of eosinophilic esophagitis. Biopsied. - Normal stomach. - Normal examined duodenum. Recommendation: - Discharge patient to home. - Resume previous diet. - Continue present medications. - Await pathology results. Procedure Code(s): --- Professional --- 04120, Esophagogastroduodenoscopy, flexible, transoral; with biopsy, single or multiple Diagnosis Code(s): --- Professional --- K21.00, Gastro-esophageal reflux disease with esophagitis, without bleeding K22.89, Other specified disease of esophagus R12, Heartburn CPT copyright 2021 [employer]. All rights reserved. The codes documented in this report are preliminary and upon senior health physics technician review may be revised to meet current compliance requirements. Ignacio Starr MD 10/03/2023 8:39:12 AM This report has been signed electronically. Number of Addenda: 0 Note Initiated On: 10/03/2023 8:24 AM
--- NOTE | 2023-10-03 08:39 | OP.CCLET_ITS ---
10/03/2023 Bibi Rodrigues [facility] Re : Upper GI endoscopy procedure for Becky Burkett [facility] This procedure was performed on Tuesday, October 03, 2023. My impressions and recommendations are as follows: Impressions : - Non-severe reflux esophagitis with no bleeding. - Esophageal mucosal changes suggestive of eosinophilic esophagitis. Biopsied. - Normal stomach. - Normal examined duodenum. Recommendations : - Discharge patient to home. - Resume previous diet. - Continue present medications. - Await pathology results. My findings are described in the full procedure note, which is enclosed. If I can be of further assistance, please feel free to contact me at Doctor phone number(s): , Work: . Sincerely, Ignacio Starr MD 10/03/2023 8:39:12 AM This report has been signed electronically.
[2023-10-03 08:41] VITALS: BP 107/78; BP 97/57; PULSE 54; RESP 16; TEMP 36.1; O2SAT 95
[2023-10-03 08:45] VITALS: BP 107/78; BP 91/49; PULSE 69; RESP 16; O2SAT 99
[2023-10-03 08:51] VITALS: BP 103/50; BP 107/78; PULSE 59; RESP 16; O2SAT 100
[2023-10-03 09:07] VITALS: BP 107/78
== END 2023-10-03 09:13 | disposition home or self-care (01) ==
LOC: EN 07:16 → AC 07:17
PROVIDERS: Referring Provider Surgery; Visit Provider Surgery
PROC: 0DJ08ZZ Inspection of Upper Intestinal Tract, Via Natural or Artificial Opening Endoscopic (ICD-10-PCS; CPT 43235; principal; 2023-10-03 07:55)
DX: K21.9 Gastro-esophageal reflux disease without esophagitis (principal); Z87.891 Personal history of nicotine dependence; Z79.899 Other long term (current) drug therapy; E78.00 Pure hypercholesterolemia, unspecified
CPT/HCPCS: 43239; 88305; J7120; J2405

== ENCOUNTER → 2024-03-28 | Outpatient (CLI) | payer OTHER, SELFPAY ==
[2024-04-02 10:09] LABS: Age Gdln ACOG Testing 30-65 (.); HPV APTIMA, High Risk Negative (Negative)
[2024-04-10 11:14] LABS: HPV Reflexed? YES, CHARGE PATIENT
== END | disposition home or self-care (01) ==
LOC: LABSPEC 15:04
PROVIDERS: PCP Nurse Practitioner Family; Referring Provider Nurse Practitioner Family; Visit Provider Nurse Practitioner Family
DX: Z01.419 Encounter for gynecological examination (general) (routine) without abnormal findings (principal)
CPT/HCPCS: 87624; 88175; G0145

== ENCOUNTER → 2024-04-30 | Outpatient (CLI) | payer OTHER, SELFPAY ==
--- NOTE | 2024-04-30 16:06 | BI_ITS ---
MAMMOGRAPHY - BILATERAL SCREENING REASON FOR EXAM: Female, 48 years old. Routine annual screening examination. PERTINENT HISTORY: Grandmother with breast cancer. TECHNIQUE: Digital bilateral breast komal (3D mammographic acquisition) in the CC and MLO projections. 2-D mediolateral oblique (MLO) and craniocaudad (CC) views of both breasts were obtained. CAD: Full Field Digital Mammography with Computer Added Detection was performed. COMPARISON: Comparison is made with prior examination dated September 23, 2016 and October 10, 2014. FINDINGS: Breast Composition: There are scattered areas of fibroglandular density. There are no dominant masses or suspicious calcifications. No other significant abnormalities are identified. There has been no significant change since the prior study. BI/SCRN MAMM (CAD)W/KOMAL BILAT IMPRESSION: Stable bilateral screening mammogram. Yearly follow-up mammogram recommended. (A) ASSESSMENT CATEGORY: BIRADS Category 1: Negative. A letter regarding these results will be sent to the patient by the facility within 30 days. Approximately 10% of breast cancers are not detected by mammography. A normal mammogram should not delay biopsy of a clinically suspicious abnormality. [id number] Electronically Signed: Spencer Phoenix MD at 9:07 EDT ,
== END | disposition home or self-care (01) ==
PROVIDERS: PCP Nurse Practitioner Family; Referring Provider Nurse Practitioner Family; Visit Provider Nurse Practitioner Family
DX: Z12.31 Encounter for screening mammogram for malignant neoplasm of breast (principal)
CPT/HCPCS: 77063; 77067